=== PATIENT | female | born 1980 | race Caucasian/White ===

== ENCOUNTER 2020-02-10 11:22 | Outpatient (NON) | payer BC, SELFPAY ==
[2020-02-11 01:07] LABS: SARS-CoV-2 RNA PCR Negative
== END 2020-02-10 11:23 ==
LOC: ANHCOVIDDT 11:23
PROVIDERS: PCP Family Medicine; Visit Provider Family Medicine
DX: J02.9 Acute pharyngitis, unspecified (principal); Z20.828 Contact with and (suspected) exposure to other viral communicable diseases
CPT/HCPCS: 87635; C9803; U0003

== ENCOUNTER 2020-04-21 06:54 | Outpatient (NON) | payer BC, SELFPAY ==
[2020-04-21 18:38] LABS: SARS-CoV-2 RNA PCR Positive
== END 2020-04-21 06:55 ==
PROVIDERS: PCP Family Medicine; Visit Provider Family Medicine
DX: U07.1 COVID-19 (principal); R68.89 Other general symptoms and signs
CPT/HCPCS: C9803; U0003; U0005

== ENCOUNTER 2020-05-11 12:31 | Emergency (ER) | payer BC, SELFPAY ==
[2020-05-11] VITALS (10 sets, daily range): BP systolic 103–126; BP diastolic 59–84; PULSE 77–85; RESP 14–16; TEMP 36.3; O2SAT 97–100
--- NOTE | ~2020-05-11 | CT_ITS ---
EXAMINATION: CTA chest PE protocol DATE: 05/11/2020 14:43 INDICATION: Shortness of breath. TECHNIQUE: Computed tomography angiography (CTA) of the chest was performed with 100 mL Omnipaque-350 intravenous contrast timed to evaluate the pulmonary arteries. Coronal maximum intensity projection 3D-reconstructions were created by the technologist. Automated exposure control and iterative reconst ruction technique were employed. The dose-length product was 183.41 mGy-cm. COMPARISON: Chest single view 05/11/2020 FINDINGS: There is mild scarring at the lung apices. There is minimal atelectasis in the lower lobes. No pleural effusion. The heart size is normal. No pericardial effusion. There is no pulmonary embolu s. There is a 13 mm cyst in left kidney. The bones are unremarkable. IMPRESSION: 1. No pulmonary embolus. Reviewed, dictated and finalized at location A. NER AND TRIMMER IMPRESSION: 1. No pulmonary embolus.
--- NOTE | ~2020-05-11 | XR_ITS ---
EXAMINATION: XR chest 1V portable 05/11/2020 13:11 INDICATION: Cough PROCEDURE: AP portable chest COMPARISON: No prior studies for comparison. FINDINGS: The lungs are clear. The cardiomediastinal silhouette is within normal limits. There are no pleural effusions. There is no pneumothorax suspected. IMPRESSION: 1: NO ACUTE CARDIOPULMONARY DISEASE. Reviewed, dictated and finalized at location B. OR BUSINESS PROCESS ANALYST
--- NOTE | 2020-05-11 12:57 | ECG_ITS ---
Measurements Intervals [place] Rate: 66 P: 44 SC: 182 QRS: 53 QRSD: 82 T: 49 QT: 410 QTc: 431 Interpretive Statements SINUS RHYTHM EARLY PRECORDIAL R/S TRANSITION BASELINE ARTIFACT- I, II, AVR BORDERLINE ECG Electronically Signed On 05-11-2020 13:51:17 DOCUMENT PHOTOGRAPHER by Prasanna Ayala D.O.
--- NOTE | 2020-05-11 12:58 | ED.GENADULT ---
HPI - General Adult General Chief complaint: Shortness of Breath/Dyspnea Stated complaint: sob post covid Time Seen by Provider: 05/11/20 12:47 Source: RN notes reviewed History of Present Illness HPI narrative: Patient presents to emergency department from PCPs office for shortness of breath. Patient states he was diagnosed with COVID-19 on April 21, 2020 she states that she was released from the health department for her symptoms but continues to have shortness of breath. States shortness of breath is worse with exertion she denies any fever chills cough chest pain abdominal pain nausea vomiting or any other symptoms. Patient does have a history of tobacco use but is not smoke since she was diagnosed with COVID-19 denies any other symptoms at this time Related Data Allergies Allergy/AdvReac Type Severity Reaction Status Date / Time Penicillins Allergy Unknown achiness Verified 05/11/20 10:48 Review of Systems Review of Systems: Narrative: Gen.: Denies fevers or chills Eyes: Denies eye pain or visual change ENT: Denies congestion Respiratory: See HPI CV: Denies chest pain or palpitations GI: Denies abdominal pain nausea, emesis or diarrhea Musculoskeletal: Denies back pain or muscle pain Neuro: Denies numbness, tingling, weakness or focal weakness Skin: Denies rash Except as documented, all other systems reviewed and negative [facility] Past Medical History Medical History Abnormal CBC Ovarian cyst Spherocytosis Surgical History Surgical History Delivery by section H/O splenectomy History of salpingectomy Hx of removal of ovary Family History Family History Father Diabetes mellitus Mother Hyperlipidemia Hypertension Grandparent Pneumonia Cerebrovascular accident Heart failure Social History Social History Smoking packs per day: 0.5 Smoking cigarettes per day: 10.0 Years smoked: 18 Smoking pack-years: 9.00 Smoking status: Current every day smoker Alcohol intake: current Drinks per week: 2 Substance use: never Exam Narrative: Exam Narrative: APPEARANCE: No acute distress, nontoxic, resting in bed EYES: EOMI HEENT: Normocephalic, atraumatic, OMM RESPIRATORY: No respiratory distress Clear to auscultation bilaterally with no rhonchi wheezing or rales. CARDIOVASCULAR: Regular rate and rhythm without murmurs rubs or gallops. ABDOMINAL: Soft, nontender, nondistended, no rebound or guarding MUSCULOSKELETAl: Moves all extremities. No clubbing, cyanosis or edema. NEURO: Awake and alert. Following commands, speech normal, no focal deficits SKIN:: Warm, dry. No rashes lesions or abrasions PSYCHIATRIC: Normal affect/mood, Course Course Emergency Course: Discussed Dr. Fuentes presentation work-up agrees with plan for discharge to follow-up as an outpatient will follow liver enzymes as outpatient Discussed with patient results of workup and diagnosis. Discussed need for follow-up with primary care, proper use of medication, and reasons to return to the emergency department. Patient understands and agrees to current treatment plan Vital Signs Vital signs: Vital Signs Temperature 97.4 F L 05/11/20 12:41 Pulse Rate 79 05/11/20 12:41 Respiratory Rate 16 05/11/20 12:41 Blood Pressure 111/66 05/11/20 12:41 Pulse Oximetry 100 05/11/20 12:41 Temperature 97.4 F L 05/11/20 12:41 Pulse Rate 78 05/11/20 16:26 Respiratory Rate 14 05/11/20 16:26 Blood Pressure 126/84 05/11/20 16:26 Pulse Oximetry 97 05/11/20 16:26 Medical Decision Making MDM Narrative Medical decision making narrative: Patient has dyspnea of unclear etiology. No wheezing on clinical exam. No abnormalities noted on chest x-ray. Patient?s EKG is without high-risk changes. Oxy
[2020-05-11 13:31] LABS: Basophils Absolute Auto 0.1 K/mm3 (0.0-0.1); Basophils Percent Auto 1.1 % (0.2-1.2); Eosinophils Absolute Auto 0.2 K/mm3 (0-0.3); Eosinophils Percent Auto 1.3 % (0-4.4); Hematocrit 40.3 % (37.0-47.0); Hemoglobin 14.1 g/dL (12.0-15.0); Immature Granulocyte Absolute 0.03 K/mm3 (0.00-0.031); Immature Granulocyte Percent A 0.2 % (0-0.5); Immature Platelet Fraction Pct 3.4 % (0.9-11.2); Lymphocytes Absolute Auto 3.31 K/mm3 (0.9-3.2); Lymphocytes Percent Auto 27.4 % (18.3-44.2); Mean Corpuscular Volume 88.6 fl (80-100); Mean Platelet Volume 9.5 fl (7.4-10.4); Neutrophils Absolute Auto 7.5 K/mm3 (1.3-6.7); Platelet Count Result 547 k/mm3 (150-375); Red Blood Count 4.55 M/mm3 (4.2-5.4); Red Cell Distribution Width 12.2 % (11.5-14.5); White Blood Count 12.1 K/mm3 (4.5-10.0)
[2020-05-11 13:40] LABS: INR 0.9; Prothrombin Time 12.9 Seconds (11.1-14.7)
[2020-05-11 13:41] LABS: Partial Thromboplastin Time 28.5 SECONDS (22.3-36.8)
[2020-05-11 13:43] LABS: Alanine Aminotransferase 105 U/L (4-35); Albumin Level 3.9 g/dL (3.5-5.1); Alkaline Phosphatase 55 U/L (38-126); Anion Gap 4 mmol/L (8-16); Aspartate Amino Transferase 97 U/L (14-36); Bilirubin,Total 1.3 mg/dL (0.2-1.3); Blood Urea Nitrogen 8 mg/dL (7-17); Calcium 8.7 mg/dL (8.4-10.2); Carbon Dioxide 25 mmol/L (22-30); Chloride 107 mmol/L (98-107); Estimated CRCL calculation 85 ml/min; Estimated Glomerular Filt Rate > 60; Glucose 96 mg/dL (65-105); Potassium 4.2 mmol/L (3.4-5.0); Sodium 136 mmol/L (137-145)
[2020-05-11 13:44] LABS: D Dimer 0.35 ug/mL (<0.48)
[2020-05-11 13:51] LABS: Burr Cells 1+ (NORMAL); Platelet Estimate Adequate (Adequate)
[2020-05-11] MEDS: SODIUM CHLORIDE 0.9% IV 1,000 ML 999 ML IV CONT (14:50)
== END 2020-05-11 16:41 | disposition home or self-care (01) ==
PROVIDERS: Emergency Provider Emergency Medicine; PCP Family Medicine
DX: R06.00 Dyspnea, unspecified (principal); Z86.16 Personal history of COVID-19; F17.210 Nicotine dependence, cigarettes, uncomplicated; Z90.81 Acquired absence of spleen; R94.31 Abnormal electrocardiogram [ECG] [EKG]
CPT/HCPCS: 36415; 71045; 71275; 80053; 81025; 85025; 85055; 85380; 85610; 85730; 93005; 96360; 96361; 99284; J7030; Q9967

== ENCOUNTER 2020-06-10 13:34 | Outpatient (CLI) | payer BC, SELFPAY ==
--- NOTE | 2020-06-10 18:03 | P.PCNPFT_ITS ---
PFT Interpretation This is a pulmonary function test with pre and post-bronchodilator spirometry, plethysmography and diffusing capacity. The test was performed and results interpreted in accordance with the 2019 and 2005 ATS/ERS Task Force guidelines respectively using the Global Lung Function Initiative-2012 reference equations. Patient demonstrated good effort and c ooperation. Reproducibility criteria were met. The quality of the pre bronchodilator spirometry maneuver was Grade A and post bronchodilator spirometry maneuver was Grade A. Findings: Spirometry: the contour the inspiratory and expiratory flow tracing are normal. The pre bronchodilator FVC is 3.29 L, 96% predicted. The pre bronchodilator FEV1 is 2.62 L, 93% predicted. The FEV1: FVC ratio was 80%. The post bronchodilator FVC is 3.26 L, representing a 1% decrease. The post bronchodilator FEV1 is 2.77, representing a 6% increase. Plethysmography: The total lung capacity is 4.25 L, 90% predicted. The functional residual capacity is 1.77 L, 68% predicted. The residual volume is 0.96 L, 66% predicted. Diffusing capacity: The absolute diffusion capacity is 19.4, 84% predicted. T he diffusing capacity corrected for alveolar volume is 4.94, 102% predicted. Impression: The spirometry is normal without evidence of an obstructive abnormality. There is no significant improvement after inhaling a single dose of albuterol. The lung volumes are normal. The diffusing capacity is normal. There are no prior studies for comparison
== END 2020-06-10 13:35 | disposition home or self-care (01) ==
PROVIDERS: PCP Family Medicine; Visit Provider Internal Medicine Critical Care Medicine
DX: R06.00 Dyspnea, unspecified (principal)
CPT/HCPCS: 94060; 94726; 94729

== ENCOUNTER 2020-12-17 08:37 | Outpatient (CLI) | payer BC, SELFPAY ==
[2020-12-17 19:46] LABS: Basophils Absolute Auto 0.1 K/mm3 (0.0-0.1); Basophils Percent Auto 1.1 % (0.2-1.2); Eosinophils Absolute Auto 0.2 K/mm3 (0-0.3); Eosinophils Percent Auto 1.3 % (0-4.4); Hematocrit 47.1 % (37.0-47.0); Immature Granulocyte Absolute 0.03 K/mm3 (0.00-0.031); Immature Granulocyte Percent A 0.3 % (0-0.5); Lymphocytes Percent Auto 31.4 % (18.3-44.2); Mean Corpuscular HGB Conc 31.8 g/dl (32-36); Mean Corpuscular Hemoglobin 31.4 pg (26-34); Mean Corpuscular Volume 98.5 fl (80-100); Mean Platelet Volume 9.8 fl (7.4-10.4); Monocytes Percent Auto 8.7 % (2.6-8.5); Neutrophils Absolute Auto 6.5 K/mm3 (1.3-6.7); Neutrophils Percent Auto 57.2 % (45.5-73.1); Platelet Count Result 633 k/mm3 (150-375); Red Blood Count 4.78 M/mm3 (4.2-5.4); Red Cell Distribution Width 13.8 % (11.5-14.5); White Blood Count 11.5 K/mm3 (4.5-10.0)
[2020-12-17 19:59] LABS: Add Urine Microscopic? YES; Appearance Urine Cloudy (Clear); Bacteria Urine Trace /hpf; Bilirubin Urine Negative (Negative); Blood Urine Negative (Negative); Color Urine Yellow (Yellow); Glucose Urine UA Negative (Negative); Ketones Urine Negative (Negative); Leukocyte Esterase Ur Negative LEU/UL (NEGATIVE); Mucus Urine Moderate /lpf; Nitrate Urine Positive (Negative); Protein Urine 1+ mg/dL (Negative); Specific Grav Ur 1.025 (1.001-1.035); Squamous Epithelial Cell Urine Many /hpf (Few)
[2020-12-17 20:10] LABS: Alanine Aminotransferase 19 U/L (4-35); Albumin Level 4.4 g/dL (3.5-5.1); Alkaline Phosphatase 42 U/L (38-126); Anion Gap 10 mmol/L (8-16); Aspartate Amino Transferase 33 U/L (14-36); Blood Urea Nitrogen 12 mg/dL (7-17); Calcium 9.6 mg/dL (8.4-10.2); Carbon Dioxide 24 mmol/L (22-30); Chloride 103 mmol/L (98-107); Cholesterol 233 mg/dL (0-200); Estimated Glomerular Filt Rate > 60; Glucose 93 mg/dL (65-110); HDL Direct 56 mg/dL; Potassium 4.5 mmol/L (3.4-5.0); Sodium 137 mmol/L (137-145); Triglycerides 104 mg/dL (<150)
[2020-12-17 20:14] LABS: Hemoglobin A1C 4.7 % (<5.7)
[2020-12-17 20:21] LABS: LDL Cholesterol Direct 119 mg/dL
== END 2020-12-17 08:38 | disposition home or self-care (01) ==
PROVIDERS: PCP Family Medicine; Visit Provider Family Medicine
DX: N30.90 Cystitis, unspecified without hematuria (principal); E07.9 Disorder of thyroid, unspecified; E78.5 Hyperlipidemia, unspecified; R73.9 Hyperglycemia, unspecified; Z00.00 Encounter for general adult medical examination without abnormal findings
CPT/HCPCS: 36415; 80053; 80061; 81001; 83036; 84443; 85025

== ENCOUNTER 2021-02-17 15:33 | Outpatient (CLI) | payer BC, SELFPAY ==
[2021-02-17 19:18] LABS: Add Urine Microscopic? YES; Appearance Urine Cloudy (Clear); Bilirubin Urine Negative (Negative); Blood Urine Negative (Negative); Color Urine Yellow (Yellow); Glucose Urine UA Negative (Negative); Ketones Urine Negative (Negative); Leukocyte Esterase Ur 1+ LEU/UL (NEGATIVE); Mucus Urine Few /lpf; Nitrate Urine Positive (Negative); Protein Urine Negative (Negative); Specific Grav Ur 1.014 (1.001-1.035); Squamous Epithelial Cell Urine Few /hpf (Few)
== END 2021-02-17 15:34 | disposition home or self-care (01) ==
LOC: ANHBWCLAB 15:34
PROVIDERS: PCP Family Medicine; Visit Provider Family Medicine
DX: N30.90 Cystitis, unspecified without hematuria (principal)
CPT/HCPCS: 81001; 87077; 87086; 87186

== ENCOUNTER 2021-06-16 08:40 | Outpatient (CLI) | payer BC, SELFPAY ==
[2021-06-16 18:53] LABS: Basophils Absolute Auto 0.1 K/mm3 (0.0-0.1); Eosinophils Absolute Auto 0.1 K/mm3 (0-0.3); Hematocrit 46.3 % (37.0-47.0); Hemoglobin 15.1 g/dL (12.0-15.0); Immature Granulocyte Absolute 0.03 K/mm3 (0.00-0.031); Immature Granulocyte Percent A 0.2 % (0-0.5); Lymphocytes Absolute Auto 3.09 K/mm3 (0.9-3.2); Lymphocytes Percent Auto 24.4 % (18.3-44.2); Mean Corpuscular HGB Conc 32.6 g/dl (32-36); Mean Corpuscular Hemoglobin 31.6 pg (26-34); Mean Corpuscular Volume 96.9 fl (80-100); Mean Platelet Volume 10.1 fl (7.4-10.4); Monocytes Absolute Auto 1.1 K/mm3 (0.1-0.6); Monocytes Percent Auto 8.6 % (2.6-8.5); Neutrophils Absolute Auto 8.2 K/mm3 (1.3-6.7); Neutrophils Percent Auto 64.8 % (45.5-73.1); Platelet Count Result 510 k/mm3 (150-375); Red Blood Count 4.78 M/mm3 (4.2-5.4); Red Cell Distribution Width 13.2 % (11.5-14.5); White Blood Count 12.6 K/mm3 (4.5-10.0)
[2021-06-16 20:16] LABS: Alanine Aminotransferase 18 U/L (4-35); Albumin Level 4.2 g/dL (3.5-5.1); Alkaline Phosphatase 47 U/L (38-126); Anion Gap 10 mmol/L (8-16); Aspartate Amino Transferase 36 U/L (14-36); Blood Urea Nitrogen 14 mg/dL (7-17); Calcium 9.2 mg/dL (8.4-10.2); Carbon Dioxide 17 mmol/L (22-30); Chloride 108 mmol/L (98-107); Creatine Kinase 47 U/L (30-135); Estimated Glomerular Filt Rate > 60; Glucose 103 mg/dL (65-110); Magnesium 2.3 mg/dL (1.6-2.3); Potassium 4.4 mmol/L (3.4-5.0); Sodium 135 mmol/L (137-145)
== END 2021-06-16 08:41 | disposition home or self-care (01) ==
PROVIDERS: PCP Family Medicine; Visit Provider Family Medicine
DX: D75.839 Thrombocytosis, unspecified (principal); G25.81 Restless legs syndrome; E07.9 Disorder of thyroid, unspecified; R25.2 Cramp and spasm; R20.0 Anesthesia of skin; D58.0 Hereditary spherocytosis; Z90.81 Acquired absence of spleen; R79.89 Other specified abnormal findings of blood chemistry
CPT/HCPCS: 36415; 80053; 82306; 82550; 82607; 82728; 83735; 84443; 85025

== ENCOUNTER 2021-07-26 15:25 | Outpatient (CLI) | payer BC, SELFPAY ==
[2021-07-26 15:42] LABS: Basophils Absolute Auto 0.1 K/mm3 (0.0-0.1); Eosinophils Absolute Auto 0.1 K/mm3 (0-0.3); Hemoglobin 14.4 g/dL (12.0-15.0); Immature Granulocyte Absolute 0.04 K/mm3 (0.00-0.031); Immature Granulocyte Percent A 0.3 % (0-0.5); Lymphocytes Absolute Auto 4.49 K/mm3 (0.9-3.2); Lymphocytes Percent Auto 32.6 % (18.3-44.2); Mean Corpuscular HGB Conc 33.5 g/dl (32-36); Mean Corpuscular Hemoglobin 31.2 pg (26-34); Mean Corpuscular Volume 93.3 fl (80-100); Mean Platelet Volume 9.5 fl (7.4-10.4); Monocytes Absolute Auto 1.3 K/mm3 (0.1-0.6); Monocytes Percent Auto 9.1 % (2.6-8.5); Neutrophils Absolute Auto 7.7 K/mm3 (1.3-6.7); Platelet Count Result 307 k/mm3 (150-375); Red Blood Count 4.61 M/mm3 (4.2-5.4); Red Cell Distribution Width 12.1 % (11.5-14.5); White Blood Count 13.8 K/mm3 (4.5-10.0)
[2021-07-26 15:48] LABS: Atypical Lymphocytes Present; Platelet Estimate Adequate (Adequate)
[2021-07-26 16:44] LABS: Anion Gap 6 mmol/L (8-16); Blood Urea Nitrogen 12 mg/dL (7-17); CRP < 0.5 mg/dL (<1.0); Calcium 9.3 mg/dL (8.4-10.2); Carbon Dioxide 26 mmol/L (22-30); Chloride 103 mmol/L (98-107); Estimated Glomerular Filt Rate > 60; Glucose 104 mg/dL (65-110); Potassium 3.8 mmol/L (3.4-5.0); Sodium 135 mmol/L (137-145)
[2021-07-26 17:07] LABS: Erythrocyte Sedimentation Rate 15 mm/hr (0-20)
== END 2021-07-26 15:26 | disposition home or self-care (01) ==
LOC: ANHLAB 15:27
PROVIDERS: PCP Family Medicine; Visit Provider Internal Medicine Hematology & Oncology
DX: D75.838 Other thrombocytosis (principal)
CPT/HCPCS: 36415; 80048; 85025; 85652; 86140

== ENCOUNTER 2021-08-10 13:35 | Outpatient (CLI) | payer BC, SELFPAY ==
[2021-08-10 19:53] LABS: Appearance Urine Slightly Cloudy (Clear); Bilirubin Urine Negative (Negative); Blood Urine Negative (Negative); Color Urine Yellow (Yellow); Glucose Urine UA Negative (Negative); Ketones Urine Negative (Negative); Leukocyte Esterase Ur 1+ LEU/UL (NEGATIVE); Nitrate Urine Negative (Negative); Protein Urine Negative (Negative); Specific Grav Ur 1.025 (1.001-1.035)
[2021-08-10 19:58] LABS: Bacteria Urine 4+ /hpf; Mucus Urine Few /lpf; Squamous Epithelial Cell Urine Few /hpf (Few)
[2021-08-10 20:00] LABS: Add Urine Microscopic? YES
== END 2021-08-10 13:36 | disposition home or self-care (01) ==
PROVIDERS: PCP Family Medicine; Visit Provider Family Medicine
DX: N30.90 Cystitis, unspecified without hematuria (principal)
CPT/HCPCS: 81001; 87077; 87086; 87186

== ENCOUNTER 2021-12-28 08:47 | Outpatient (CLI) | payer BC, SELFPAY ==
[2021-12-28 20:18] LABS: Basophils Absolute Auto 0.1 K/mm3 (0.0-0.1); Basophils Percent Auto 1.3 % (0.2-1.2); Eosinophils Absolute Auto 0.1 K/mm3 (0-0.3); Eosinophils Percent Auto 1.1 % (0-4.4); Hematocrit 46.4 % (37.0-47.0); Hemoglobin 14.8 g/dL (12.0-15.0); Immature Granulocyte Absolute 0.03 K/mm3 (0.00-0.031); Immature Granulocyte Percent A 0.3 % (0-0.5); Lymphocytes Absolute Auto 3.02 K/mm3 (0.9-3.2); Lymphocytes Percent Auto 27.6 % (18.3-44.2); Mean Corpuscular HGB Conc 31.9 g/dl (32-36); Mean Corpuscular Hemoglobin 31.3 pg (26-34); Mean Corpuscular Volume 98.1 fl (80-100); Mean Platelet Volume 9.7 fl (7.4-10.4); Monocytes Absolute Auto 0.9 K/mm3 (0.1-0.6); Monocytes Percent Auto 8.5 % (2.6-8.5); Neutrophils Absolute Auto 6.7 K/mm3 (1.3-6.7); Neutrophils Percent Auto 61.2 % (45.5-73.1); Platelet Count Result 593 k/mm3 (150-375); Red Blood Count 4.73 M/mm3 (4.2-5.4); Red Cell Distribution Width 13.5 % (11.5-14.5); White Blood Count 10.9 K/mm3 (4.5-10.0)
[2021-12-28 20:22] LABS: Free T4 Free Thyroxine 1.01 ng/mL (0.78-2.19)
[2022-01-01 08:24] LABS: Triiodothyronine T3 Free 3.5 pg/mL (2.3-4.2)
== END 2021-12-28 08:48 | disposition home or self-care (01) ==
LOC: ANHBWCLAB 08:48
PROVIDERS: PCP Family Medicine; Visit Provider Family Medicine
DX: E07.9 Disorder of thyroid, unspecified (principal); R20.0 Anesthesia of skin; R25.2 Cramp and spasm
CPT/HCPCS: 36415; 84439; 84443; 84481; 85025

== ENCOUNTER 2022-01-25 08:30 | Outpatient (CLI) | payer BC, SELFPAY ==
--- NOTE | ~2022-01-25 | XR_ITS ---
EXAMINATION: XR hand BI arthritis min 3V DATE: 01/25/2022 08:45 INDICATION: Chronic bilateral hand pain and numbness. TECHNIQUE: 4 views of right hand and 4 views of left hand on a total of 7 radiographs were obtained. COMPARISON: None. FINDINGS: RIGHT HAND: Bone alignment is normal. No fracture. There is mild osteoarthritis of first carpometacar pal joint. LEFT HAND: Bone alignment is normal. No fracture. Joint spaces are normal. IMPRESSION: 1. 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 Reviewed, dictated and finalized at location A.
[2022-01-25 20:00] LABS: CRP < 0.5 mg/dL (<1.0)
[2022-01-25 20:36] LABS: Erythrocyte Sedimentation Rate 12 mm/hr (0-20)
[2022-01-31 09:41] LABS: ANA Cascade Screen Negative (Negative)
== END 2022-01-25 08:31 | disposition home or self-care (01) ==
PROVIDERS: PCP Family Medicine; Visit Provider Family Medicine
DX: M79.89 Other specified soft tissue disorders (principal); R25.2 Cramp and spasm; M19.041 Primary osteoarthritis, right hand
CPT/HCPCS: 36415; 73130; 85652; 86038; 86140

== ENCOUNTER 2022-06-09 07:27 | Outpatient (CLI) | payer BC, SELFPAY ==
[2022-06-09 21:14] LABS: Appearance Urine Cloudy (Clear); Bilirubin Urine Negative (Negative); Blood Urine Negative (Negative); Color Urine Yellow (Yellow); Glucose Urine UA Negative (Negative); Ketones Urine Negative (Negative); Leukocyte Esterase Ur Trace LEU/UL (NEGATIVE); Nitrate Urine Positive (Negative); Protein Urine Negative (Negative); Specific Grav Ur 1.025 (1.001-1.035); Urobilinogen Urine 0.2 mg/dL (<2.0)
[2022-06-09 21:54] LABS: Add Urine Microscopic? YES
[2022-06-09 21:55] LABS: RBC Urine 0-2 /hpf (0-2); Squamous Epithelial Cell Urine Few /hpf (Few)
[2022-06-09 21:56] LABS: Bacteria Urine 4+ /hpf
== END 2022-06-09 07:28 | disposition home or self-care (01) ==
LOC: ANHBWCLAB 07:29
PROVIDERS: PCP Family Medicine; Visit Provider Family Medicine
DX: N30.90 Cystitis, unspecified without hematuria (principal)
CPT/HCPCS: 81001; 87077; 87086; 87186

== ENCOUNTER 2022-12-07 07:30 | Outpatient (CLI) | payer BC, SELFPAY ==
[2022-12-07 18:14] LABS: Hemoglobin 14.3 g/dL (12.0-15.0); Mean Corpuscular HGB Conc 31.1 g/dl (32-36); Mean Corpuscular Hemoglobin 30.8 pg (26-34); Mean Corpuscular Volume 99.1 fl (80-100); Mean Platelet Volume 9.8 fl (7.4-10.4); Platelet Count Result 563 k/mm3 (150-375); Red Blood Count 4.64 M/mm3 (4.2-5.4); Red Cell Distribution Width 13.8 % (11.5-14.5); White Blood Count 11.2 K/mm3 (4.5-10.0)
[2022-12-07 19:03] LABS: Alanine Aminotransferase 26 U/L (6-35); Alkaline Phosphatase 49 U/L (38-126); Anion Gap 4 mmol/L (8-16); Aspartate Amino Transferase 76 U/L (14-36); Bilirubin,Total 0.8 mg/dL (0.2-1.3); Blood Urea Nitrogen 12 mg/dL (7-17); Calcium 8.7 mg/dL (8.4-10.2); Carbon Dioxide 26 mmol/L (22-30); Chloride 107 mmol/L (98-107); Cholesterol 227 mg/dL (0-200); Estimated Glomerular Filt Rate > 60; Glucose 92 mg/dL (65-110); HDL Direct 47 mg/dL; Potassium 4.3 mmol/L (3.4-5.0); Sodium 137 mmol/L (137-145); Triglycerides 90 mg/dL (<150)
[2022-12-07 19:14] LABS: LDL Cholesterol Direct 127 mg/dL
[2022-12-07 20:30] LABS: Vitamin D 25 Hydroxy 48.4 ng/mL
== END 2022-12-07 07:31 | disposition home or self-care (01) ==
LOC: ANHBWCLAB 07:31
PROVIDERS: PCP Family Medicine; Visit Provider Family Medicine
DX: Z00.00 Encounter for general adult medical examination without abnormal findings (principal); G25.81 Restless legs syndrome; R20.0 Anesthesia of skin; R79.89 Other specified abnormal findings of blood chemistry; N93.8 Other specified abnormal uterine and vaginal bleeding; K21.9 Gastro-esophageal reflux disease without esophagitis; D58.0 Hereditary spherocytosis; D75.839 Thrombocytosis, unspecified; R51.9 Headache, unspecified; H92.09 Otalgia, unspecified ear; G89.29 Other chronic pain; M79.89 Other specified soft tissue disorders; E34.9 Endocrine disorder, unspecified; E78.5 Hyperlipidemia, unspecified; E07.9 Disorder of thyroid, unspecified; I95.9 Hypotension, unspecified; Z90.81 Acquired absence of spleen; Z90.79 Acquired absence of other genital organ(s)
CPT/HCPCS: 36415; 80053; 80061; 82306; 84443; 85027

== ENCOUNTER 2023-04-06 07:21 | Outpatient (CLI) | payer BC, SELFPAY ==
[2023-04-06 18:54] LABS: Appearance Urine Cloudy (Clear); Bacteria Urine 4+ /hpf; Bilirubin Urine Negative (Negative); Blood Urine Negative (Negative); Color Urine Yellow (Yellow); Glucose Urine UA Negative (Negative); Ketones Urine Negative (Negative); Leukocyte Esterase Ur Trace LEU/UL (Negative); Nitrate Urine Negative (Negative); Non Pathogenic Casts 0-2; Protein Urine Negative (Negative); RBC Urine 0-2 /hpf (0-2); Squamous Epithelial Cell Urine Few /hpf (Few); pH Urine 5.5 (5.0-9.0)
[2023-04-06 19:00] LABS: Add Urine Microscopic? YES
== END 2023-04-06 07:22 | disposition home or self-care (01) ==
PROVIDERS: PCP Nurse Practitioner Adult Health; Visit Provider Family Medicine
DX: R39.9 Unspecified symptoms and signs involving the genitourinary system (principal)
CPT/HCPCS: 81001; 87077; 87086; 87186

== ENCOUNTER 2023-06-12 07:39 | Outpatient (CLI) | payer BC, SELFPAY ==
[2023-06-12 18:45] LABS: Hematocrit 48.7 % (37.0-47.0); Hemoglobin 15.5 g/dL (12.0-15.0); Mean Corpuscular HGB Conc 31.8 g/dl (32-36); Mean Corpuscular Hemoglobin 30.6 pg (26-34); Mean Corpuscular Volume 96.1 fl (80-100); Mean Platelet Volume 10.4 fl (7.4-10.4); Platelet Count Result 551 k/mm3 (150-375); Red Blood Count 5.07 M/mm3 (4.2-5.4); White Blood Count 12.6 K/mm3 (4.5-10.0)
[2023-06-12 18:49] LABS: Alanine Aminotransferase 58 U/L (6-35); Alkaline Phosphatase 52 U/L (38-126); Anion Gap 7 mmol/L (8-16); Aspartate Amino Transferase 115 U/L (14-36); Blood Urea Nitrogen 12 mg/dL (7-17); Carbon Dioxide 21 mmol/L (22-30); Chloride 109 mmol/L (98-107); Estimated Glomerular Filt Rate > 60; Glucose 92 mg/dL (65-110); Sodium 137 mmol/L (137-145)
[2023-06-12 19:24] LABS: Vitamin D 25 Hydroxy 43.8 ng/mL
== END 2023-06-12 07:40 | disposition home or self-care (01) ==
LOC: ANHBWCLAB 07:40
PROVIDERS: PCP Nurse Practitioner Adult Health; Visit Provider Family Medicine
DX: Z00.00 Encounter for general adult medical examination without abnormal findings (principal); R79.89 Other specified abnormal findings of blood chemistry; D58.0 Hereditary spherocytosis; E07.9 Disorder of thyroid, unspecified; Z90.79 Acquired absence of other genital organ(s); Z90.81 Acquired absence of spleen
CPT/HCPCS: 36415; 80053; 82306; 84443; 85027

== ENCOUNTER 2023-07-15 07:28 | Outpatient (CLI) | payer BC, SELFPAY ==
[2023-07-15 08:51] LABS: Hepatitis B Surface Antigen Negative (Negative)
[2023-07-15 08:57] LABS: HAV RESULT Negative (Negative); Hepatitis B Core IgM Result Negative (Negative)
[2023-07-15 09:08] LABS: Hepatitis C Virus Antibody Negative (Negative)
== END 2023-07-15 07:29 | disposition home or self-care (01) ==
LOC: ANHLAB 07:29
PROVIDERS: PCP Nurse Practitioner Adult Health; Visit Provider Family Medicine
DX: R74.01 Elevation of levels of liver transaminase levels (principal)
CPT/HCPCS: 36415; 80074

== ENCOUNTER 2023-07-31 15:56 | Outpatient (CLI) | payer BC, SELFPAY ==
[2023-07-31 19:13] LABS: Appearance Urine Cloudy (Clear); Bacteria Urine 1+ /hpf; Bilirubin Urine Negative (Negative); Blood Urine Negative (Negative); Color Urine Yellow (Yellow); Glucose Urine UA Negative (Negative); Ketones Urine Negative (Negative); Leukocyte Esterase Ur 1+ LEU/UL (Negative); Nitrate Urine Negative (Negative); Non Pathogenic Casts 0-2; Protein Urine Negative (Negative); RBC Urine 0-2 /hpf (0-2); Squamous Epithelial Cell Urine Few /hpf (Few); WBC Urine 51-100 /hpf (0-3); pH Urine 7.5 (5.0-9.0)
[2023-07-31 19:46] LABS: Add Urine Microscopic? YES
== END 2023-07-31 15:57 | disposition home or self-care (01) ==
LOC: ANHBWCLAB 15:58
PROVIDERS: PCP Family Medicine; Visit Provider Family Medicine
DX: R74.01 Elevation of levels of liver transaminase levels (principal); N30.90 Cystitis, unspecified without hematuria
CPT/HCPCS: 81001; 87077; 87086; 87088

== ENCOUNTER 2023-08-26 07:33 | Outpatient (CLI) | payer BC, SELFPAY ==
--- NOTE | ~2023-08-26 | US_ITS ---
EXAMINATION: US abdomen limited DATE: 08/26/2023 08:06 INDICATION: Elevation of levels of liver transaminases. TECHNIQUE: Multiple grayscale and Doppler ultrasound images of the abdomen were obtained. COMPARISON: Chest CT 05/11/2020 FINDINGS: The visualized portions of the head, body, and tail of the pancreas are normal. There is a 1.1 cm hyperechoic mass in the liver. There is normal flow in main portal vein. The gallbladder is no rmal in size. No gallstones or gallbladder wall thickening. There is no sonographic Lopse's sign. Th e common duct is normal and measures 3 mm. IMPRESSION: 1. 1.1 cm hyperechoic liver mass, likely hemangioma in the absence of known malignancy or chronic jarrett er disease. Reviewed, dictated and finalized at location A. IMPRESSION: 1. 1.1 cm hyperechoic liver mass, likely hemangioma in the absence of known mal ignancy or chronic liver disease.
== END 2023-08-26 07:34 | disposition home or self-care (01) ==
LOC: ANHIMG 07:36
PROVIDERS: PCP Family Medicine; Visit Provider Family Medicine
DX: R74.01 Elevation of levels of liver transaminase levels (principal); R16.0 Hepatomegaly, not elsewhere classified
CPT/HCPCS: 76705

== ENCOUNTER 2023-12-14 11:18 | Outpatient (CLI) | payer BC, SELFPAY ==
[2023-12-14 19:46] LABS: Add Urine Microscopic? YES; Appearance Urine Turbid (Clear); Bacteria Urine 4+ /hpf; Bilirubin Urine 1+ (Negative); Blood Urine Negative (Negative); Budding Yeast Urine Present /hpf; Color Urine Dark Yellow (Yellow); Glucose Urine UA Negative (Negative); Ketones Urine Trace mg/dL (Negative); Leukocyte Esterase Ur 2+ LEU/UL (Negative); Need Manual Microscopic Reviewed; Nitrate Urine Positive (Negative); Protein Urine 1+ mg/dL (Negative); Specific Grav Ur 1.025 (1.001-1.035); Squamous Epithelial Cell Urine Many /hpf (Few); WBC Urine 21-50 /hpf (0-3)
== END 2023-12-14 11:19 | disposition home or self-care (01) ==
LOC: ANHBWCLAB 11:19
PROVIDERS: PCP Nurse Practitioner Adult Health; Visit Provider Nurse Practitioner Adult Health
DX: R39.9 Unspecified symptoms and signs involving the genitourinary system (principal)
CPT/HCPCS: 81001; 87077; 87086; 87088; 87186

== ENCOUNTER 2024-01-01 08:03 | Outpatient (CLI) | payer BC, SELFPAY ==
[2024-01-01 18:53] LABS: Hemoglobin 15.3 g/dL (12.0-15.0); Mean Corpuscular HGB Conc 31.9 g/dl (32-36); Mean Corpuscular Hemoglobin 31.5 pg (26-34); Mean Platelet Volume 10.5 fl (7.4-10.4); Platelet Count Result 511 k/mm3 (150-375); Red Blood Count 4.85 M/mm3 (4.2-5.4); Red Cell Distribution Width 13.7 % (11.5-14.5); White Blood Count 9.1 K/mm3 (4.5-10.0)
[2024-01-01 19:19] LABS: Alanine Aminotransferase 21 U/L (6-35); Albumin Level 4.1 g/dL (3.5-5.1); Alkaline Phosphatase 43 U/L (38-126); Anion Gap 7 mmol/L (4-12); Aspartate Amino Transferase 30 U/L (14-36); Bilirubin,Total 0.9 mg/dL (0.2-1.3); Blood Urea Nitrogen 13 mg/dL (7-17); Calcium 9.3 mg/dL (8.4-10.2); Carbon Dioxide 24 mmol/L (22-30); Chloride 104 mmol/L (98-107); Cholesterol 229 mg/dL (0-200); Estimated Glomerular Filt Rate > 60; Glucose 94 mg/dL (65-110); HDL Direct 54 mg/dL; Potassium 4.7 mmol/L (3.4-5.0); Sodium 135 mmol/L (137-145); Triglycerides 139 mg/dL (<150)
[2024-01-01 19:20] LABS: Iron 117 ug/dL (37-170)
[2024-01-01 19:29] LABS: Percent Iron Saturation 43 % (20-50)
[2024-01-01 19:30] LABS: LDL Cholesterol Direct 132 mg/dL
[2024-01-01 19:35] LABS: Vitamin D 25 Hydroxy 46.9 ng/mL
[2024-01-01 20:25] LABS: Folic Acid 5.2 ng/mL (2.76->20)
== END 2024-01-01 08:04 | disposition home or self-care (01) ==
PROVIDERS: PCP Nurse Practitioner Adult Health; Visit Provider Nurse Practitioner Adult Health
DX: R79.89 Other specified abnormal findings of blood chemistry (principal)
CPT/HCPCS: 36415; 80053; 80061; 82306; 82607; 82728; 82746; 83540; 83550; 85027

== ENCOUNTER 2024-07-10 08:35 | Outpatient (CLI) | payer BC, SELFPAY ==
--- OUTSIDE RECORDS SUMMARY | 2024-07-10 09:03 | XMS_ITS | Clinical Summary ---
Author Organization [facility] Address [address] [place] [address] Care Team Providers Care Workcell Operator Name Role Phone Kimberly Rivera MD Unavailable [phone] Duke Sargent MD Primary Care Provider [phone] Allergies Active Allergy Reactions Criticality Noted Date Comments Penicillin Itching Reaction: Itching, Medications naproxen (NAPROSYN) 500 mg tablet Take 1 tablet (500 mg total) by mouth 2 (two) times a day as needed for pain (pain) 30 tablet 1 0 Active Additional Information Patient not taking.Reported on 04/29/2024 liothyronine (CYTOMEL) 5 mcg tablet Take 1 tablet (5 mcg total) by mouth daily 1 Active ergocalciferol (VITAMIN D) 50,000 unit capsule Take 1 capsule (50,000 Units total) by mouth every 30 (thirty) days Active cholecalciferol (VITAMIN D-3) 5,000 unit capsule Take 1 capsule (5,000 Units total) by mouth daily Active FLUoxetine (PROzac) 40 mg capsule 5 Active Active Problems Problem Noted Date Diagnosed Date Abnormal mammogram 04/29/2024 Overview (04/29/2024): Encouraged to schedule appointment to have follow-up diagnostic breast imaging done. Assessment & Plan (04/29/2024 4:38 PM MACHINE TENDER): Encouraged to schedule appointment to have follow-up diagnostic breast imaging done. Since she will be due for screening of the right breast in May, I have changed the order to a bilateral diagnostic mammogram w/ the left breast ultrasound. Endometrioma 01/26/2019 Overview (01/26/2019): S/p salpingo-oophorectomy, benign findings Endometriosis of vagina 01/26/2019 Pelvic mass 07/20/2018 Overview (07/21/2018): Added automatically from request for surgery [id number] Spherocytosis 03/09/2015 Overview (07/08/2016): Spherocytosis Encounters Date Type Department Care Team Description 06/04/2024 11:23 AM MACHINE TENDER - 06/04/2024 11:59 PM MACHINE TENDER Hospital Encounter [address] [address] Abnormal mammogram Discharge Disposition: Discharge to home or self care 06/04/2024 11:23 AM MACHINE TENDER - 06/04/2024 11:59 PM MACHINE TENDER Hospital Encounter [address] [address] Abnormal mammogram Discharge Disposition: Discharge to home or self care 06/04/2024 Results Follow-Up [address] [place] [address] Luh Smith NP Abnormal mammogram (Primary Dx) 04/29/2024 3:30 PM MACHINE TENDER [facility] [address] [place] [address] Luh Smith NP Well woman exam (Primary Dx); Abnormal mammogram from Last 3 Months Surgical History Surgery Date Site/Laterality Comments OTHER SURGICAL HISTORY 04/03/2001 - 04/02/2002 , Preeclampsia: OTHER SURGICAL HISTORY Spherocytosis: Splenectomy SECTION 10/01/2001 - 10/31/2001 CYST REMOVAL 07/21/2018 Endometrial Cyst- laproscopic. 1 tube and 1 ovary from left side. SPLENECTOMY, TOTAL 04/03/1986 - 04/02/1987 Medical History Medical History Date Comments Hx Other Medical , Pree clampsia; Comments: Preeclampsia.; Outcome: 37W0D week 7lb(s) 9 oz Male Hx Other Medical Spherocytosis; Comments: RED 03/09/2015 - History of kidney problems Anemia Hx of infertility Female fertility problems Smoking former smoker qu it 04/2020 Family History Medical History Relation Name Comments Diabetes Father Diabetes mellit us; Hyperlipidemia Mother Hypertension Mother Hypertension; Breast cancer Neg Hx Ovarian cancer Neg Hx Thyroid cancer Neg Hx Relation Name Status Comments Father Mother Social History Tobacco Use Types Packs/Day Years Used Date Smoking Tobacco: Former Cigarettes Smokeless Tobacco: Never Tobacco Cessation:Counseling Given: Not Answered Comments:Smoking History Packs/day: 0.5 Packs Alcohol Use Standard Drinks/Week Comments Yes 0 (1 standard drink = 0.6 oz pur e alcohol) AUDIT-C Answer Date Recorded Q1: How often do you have a drink containing alc ohol? Monthly or less 01/13/2022 Q2: How many drinks containi ng alcohol do you have on a typical day when you are drinking? 1 or 2 01/13/2022 Q3: How often do you have si x or more drinks on one occasion? Never 01/13/2022 PHQ-2 Answer Date Recorded PHQ-2 Total Score (If total score is 3 or more points, staff should administer the PHQ-9) 0 04/27/2023 Comments No Sex and Gender Information Value Date Recorded Sex Assigned at Not on file Legal Sex Female 8:22 AM MACHINE TENDER Gender Identity Not on file Sexual Orientation Not on file Obstetrics History Para Term AB IAB SAB Ectopic Multiple Livin g Live Births 1 1 1 1 1 Date Outcome GA Total Labor Labor/2nd/3rd Weight Sex Type Anes PTL Jaye A1 A5 Name Clin Term Living Last Filed Vital Signs Vital Sign Reading Time Taken Comments Blood Pressure 110/70 04/29/2024 3:16 PM MACHINE TENDER Pulse 91 11/02/2023 9:55 AM CDT Temperature 36.8 C (98.2 F) 11/02/2023 9:55 AM CDT Respiratory Rate 16 07/22/2018 7:54 AM CDT Oxygen Saturation 99% 08/07/2018 2:51 PM CDT Inhaled Oxygen Concentration - - Weight 68.6 kg (151 lb 3.2 oz) 04/29/2024 3:16 P M MACHINE TENDER Height 157.5 cm (5' 2 ) 06/04/2024 11:31 AM MACHINE TENDER Body Mass Index 26.78 11/02/2023 9:55 AM CDT Plan of Treatment Health Maintenance Due Date Last Done Comments Hepatitis C Screening 1980 DTaP/Tdap/Td Vaccine (1 - Tdap) 11/14/1991 Varicella Vaccines (1 of 2 - 13+ 2-dose series) 1993 Hepatitis B Screening 1998 Covid-19 Vaccine (3 - 2023- season) 2023 07/23/2020, 07/02/2020 Depression Screening 04/27/2024 04/27/2023, 01/13/2022, 11/30/2020, Additional history exists Influenza Vaccine (Season Ended) 2024 Cervical Cancer Screening 04/29/20252024, 04/27/2023, 01/13/2022, Additional history exists Regular Well Visit/Exam 18-64 04/29/2025 04/29/2024, 04/27/2023, 01/13/2022, Additional history exists Breast Cancer Screening-Mammogram 06/04/2025 06/04/2024, 06/13/2023, 05/03/2023, Additional history exists HPV Vaccines Aged Out No longer eligi ble based on patient's age to complete this topic Pneumococcal vaccine <65 Aged Out No longer eligible based on patient's age to complete this topic Procedures Procedure Name Priority Date/Time Associated Diagnosis Comments US BREAST LEFT LIMITED Schedule Routine, Read Routine (OP Routine) 06/04/2024 12:49 PM MACHINE TENDER Abnormal mammogram DIAGNOSTIC MAMMOGRAM BILATERAL W MOIRA Schedule Routine, Read Routine (OP Routine) 06/04/2024 11:36 AM MACHINE TENDER Abnormal mammogram PAP, REFLEX HPV Routine 04/29/2024 3:58 PM MACHINE TENDER Well woman exam from Last 3 Months Results * US Breast Limited left (06/04/2024 12:49 PM MACHINE TENDER) Anatomical Region Laterality Modality Breast Left Ultrasound 06/04/2024 1:09 PM MACHINE TENDER Impressions 06/04/2024 1:09 PM MACHINE TENDER The mammographic mass into sonographic lesions in the left breast will continue to be classified as probably benign. A follow-up left diagnostic mammogram and ultrasound are recommended in 6 months. BI-RADS: 3 - Probably benign The patient has been or will be contacted. The patient will be entered into a reminder system with a target due date of 6 months for her next examinations. Electronically signed by: Antonio Sexton M.D. Narrative 06/04/2024 1:09 PM MACHINE TENDER EXAMINATION: DIAGNOSTIC MAMMOGRAM BILATERAL W MOIRA, US BREAST LEFT LIMITED ORDERING HEALTHCARE PROVIDER: LUH SMITH HISTORY: Follow-up probably benign lesion in the left breast. COMPARISON: 06/13/2023, 05/03/2023 TECHNIQUE: CC and MLO routine views of the Bilateral breasts were obtained with digital technique using breast tomosynthesis with C view. Computer aided detection was utilized. This was followed by targeted left breast sonography. FINDINGS: The breasts are heterogeneously dense, which may obscure small masses. The previously seen oval mass in the left breast is again seen on the MLO view and now also seen posterior medially on the craniocaudal view. This appears to be occlusion o'clock position rather than the 12 o'clock position. There are no other suspicious masses, calcifications, or architectural distortion in either breast on the mammogram. Further evaluation was obtained with sonography. Targeted left breast ultrasound: The previously seen lesion at the 12 o'clock position of the left breast, 3 cm from the nipple measures 0.8 x 0.6 x 0.6 cm, previously 0.9 x 0.7 x 0.6 cm. This is likely a cluster of cysts. At the 10 o'clock position, 8 cm from the nipple, an oval hypoechoic lesion measures 0.7 x 0.4 cm. This is likely a complex cyst likely corresponds to the mammographic findings. These lesions continue to be classified as probably benign. us Luh Smith SENIOR EXECUTIVE ASSISTANT IMG MAMMO PROCEDURES Final Resul t * DIAGNOSTIC MAMMOGRAM BILATERAL W MOIRA (06/04/2024 11:36 AM MACHINE TENDER) Anatomical Region Laterality Modality Breast Bilateral Mammography 06/04/2024 1:09 PM MACHINE TENDER Impressions 06/04/2024 1:09 PM MACHINE TENDER The mammographic mass into sonographic lesions in the left breast will continue to be classified as probably benign. A follow-up left diagnostic mammogram and ultrasound are recommended in 6 months. BI-RADS: 3 - Probably benign The patient has been or will be contacted. The patient will be entered into a reminder system with a target due date of 6 months for her next examinations. Electronically signed by: Antonio Sexton M.D. Narrative 06/04/2024 1:09 PM MACHINE TENDER EXAMINATION: DIAGNOSTIC MAMMOGRAM BILATERAL W MOIRA, US BREAST LEFT LIMITED ORDERING HEALTHCARE PROVIDER: LUH SMITH HISTORY: Follow-up probably benign lesion in the left breast. COMPARISON: 06/13/2023, 05/03/2023 TECHNIQUE: CC and MLO routine views of the Bilateral breasts were obtained with digital technique using breast tomosynthesis with C view. Computer aided detection was utilized. This was followed by targeted left breast sonography. FINDINGS: The breasts are heterogeneously dense, which may obscure small masses. The previously seen oval mass in the left breast is again seen on the MLO view and now also seen posterior medially on the craniocaudal view. This appears to be occlusion o'clock position rather than the 12 o'clock position. There are no other suspicious masses, calcifications, or architectural distortion in either breast on the mammogram. Further evaluation was obtained with sonography. Targeted left breast ultrasound: The previously seen lesion at the 12 o'clock position of the left breast, 3 cm from the nipple measures 0.8 x 0.6 x 0.6 cm, previously 0.9 x 0.7 x 0.6 cm. This is likely a cluster of cysts. At the 10 o'clock position, 8 cm from the nipple, an oval hypoechoic lesion measures 0.7 x 0.4 cm. This is likely a complex cyst likely corresponds to the mammographic findings. These lesions continue to be classified as probably benign. us Luh Smith SENIOR EXECUTIVE ASSISTANT IMG MAMMO PROCEDURES Final Resul t * Pap, reflex HPV (04/29/2024 3:58 PM MACHINE TENDER) CLINICAL INFORMATION: [facility] Comment:None given LMP [facility] Comment:None given Previous Pap [facility] Comment:None given Prev. Bx [facility] Comment:None given SOURCE: [facility] Comment:Cervix, Endocervix Pap, specimen adequacy [facility] Comment: Satisfactory for evaluation. Endocervical/transformation zone component present. Age and/or menstrual status not provided HPV interp [facility] Comment: Cytology Results: Negative for intraepithelial lesion or malignancy. COMMENTS [facility] Comment: This Pap test has been evaluated with computer assisted technology. Dump Motorman [facility] st Neela Mace Comment: ABC, CT(ASCP) CT screening location: [place] [address] Administration [place] [id number] Comment [facility] Comment: EXPLANATORY NOTE: The Pap is a screening test for cervical cancer. It is not a diagnostic test and is subject to false negative and false positive results. It is most reliable when a satisfactory sample, regularly obtained, is submitted with relevant clinical findings and history, and when the Pap result is evaluated along with historic and current clinical information. Thin prep 04/29/2024 3:58 PM MACHINE TENDER 04/30/2024 3:51 AM MACHINE TENDER us Luh Smith SENIOR EXECUTIVE ASSISTANT LAB CYTOLOGY ORDERABLES Final Re sult [place] [address] Administration NIKHIL [place] [id number] from Last 3 Months Insurance [facility] [employer] [facility] [employer] Advance Directives For more information, please contact: [phone] * Full Code (Latest Code Status on File) Date Activated Date Inactivated Comments 07/20/2018 8:57 PM 07/22/2018 3:43 PM Care Teams Workcell Operator Relationship Specialty Start Date End Date Duke Sargent MD PCP - General Family Practice 04/28/23 Kimberly Rivera MD Consulting Physician Emergency Medicine 08/14/18
--- OUTSIDE RECORDS SUMMARY | 2024-07-10 09:03 | XMS_ITS | Clinical Summary ---
Author Organization [facility] Carlos Mercado Address [address] [place] [address] Care Team Providers Care Kier Hand Name Role Phone Duke Sargent MD Primary Care Provider [phone] [phone] Allergies Active Allergy Reactions Criticality Noted Date Comments Penicillin Itching Low 07/26/2021 Reaction: Itching, Medications liothyronine (CYTOMEL) 5 mcg Tablet Take 5 mcg by mouth daily. 11/09/2020 Active cholecalciferol, Vitamin D3, 125 mcg (5,000 unit) Capsule Take 5,000 Units by mouth daily. Active Active Problems Problem Noted Date Diagnosed Date Reactive thrombocytosis 07/26/2021 Hereditary spherocytosis 07/26/2021 Family History Medical History Relation Name Comments Diabetes Father Relation Name Status Comments Brother 1 Alive Brother 2 Alive Father Alive Mother Alive Sister Alive Son Alive Social History Tobacco Use Types Packs/Day Years Used Date Smoking Tobacco: Former Smokeless Tobacco: Never Alcohol Use Standard Drinks/Week Comments Yes 0 (1 standard drink = 0.6 oz pur e alcohol) Comments Unknown Sex and Gender Information Value Date Recorded Sex Assigned at Not on file Legal Sex Female 2:31 PM CDT Gender Identity Not on file Sexual Orientation Not on file Last Filed Vital Signs Vital Sign Reading Time Taken Comments Blood Pressure 122/81 07/26/2021 2:45 PM CDT Pulse 92 07/26/2021 2:45 PM CDT Temperature 37.2 C (98.9 F) 07/26/2021 2:45 PM CDT Respiratory Rate - - Oxygen Saturation 98% 07/26/2021 2:45 PM CDT Inhaled Oxygen Concentration - - Weight 68.5 kg (151 lb 1.6 oz) 07/26/2021 2:45 P M CDT Height 157.5 cm (5' 2 ) 07/26/2021 2:45 PM CDT Body Mass Index 27.64 07/26/2021 2:45 PM CDT Plan of Treatment Health Maintenance Due Date Last Done Comments DTAP/TDAP/TD VACCINES (1 - Tdap) 11/14/1999 HEPATITIS B VACCINES (1 of 3 - 19+ 3-dose series) 11/14/1999 HPV/Cotest (21-29) 2001 CERVICAL CANCER SCREENING 2010 HPV/Cotest (30-65) 2010 PAP SMEAR 2010 BREAST CANCER SCREENING 12/10/2021 12/10/2020 INFLUENZA VACCINE (#1) 2023 HPV VACCINES Aged Out No longer eligi ble based on patient's age to complete this topic Insurance [employer] Care Teams Kier Hand Relationship Specialty Start Date End Date Duke Sargent MD PCP - General Family Practice 07/26/21
--- OUTSIDE RECORDS SUMMARY | 2024-07-10 09:03 | XMS_ITS | Referral Summary ---
Author Organization [facility] Address [address] [place] [address] Care Team Providers Care Director Global Medical Affairs Name Role Phone Kimberly Rivera MD Unavailable [phone]- [phone] Duke Sargent MD Primary Care Provider [phone] [phone] Encounters Date Type Department Care Team Description 06/04/2024 Results Follow-Up [facility] [address] [place] [address] [address] [address] Lian Smith NP Abnormal mammogram (Primary Dx) 06/04/2024 11:23 AM ELECTRICIAN OUTSIDE - 06/04/2024 11:59 PM ELECTRICIAN OUTSIDE Hospital Encounter [address] [address] Abnormal mammogram Discharge Disposition: Discharge to home or self care 06/04/2024 11:23 AM ELECTRICIAN OUTSIDE - 06/04/2024 11:59 PM ELECTRICIAN OUTSIDE Hospital Encounter [address] [address] Abnormal mammogram Discharge Disposition: Discharge to home or self care 04/29/2024 3:30 PM ELECTRICIAN OUTSIDE Office Visit [facility] [address] [place] [address] [address] [address] Lian Smith NP Well woman exam (Primary Dx); Abnormal mammogram from Last 3 Months Allergies Active Allergy Reactions Criticality Noted Date [...] done. Assessment & Plan (04/29/2024 4:38 PM ELECTRICIAN OUTSIDE): Encouraged to schedule appointment to have follow-up diagnostic breast imaging done. Since she will be due for screening of the right breast in May, I have changed the order to a bilateral diagnostic mammogram w/ the left breast ultrasound. Endometrioma 01/26/2019 Overview (01/26/2019): S/p salpingo-oophorectomy, benign findings Endometriosis of vagina 01/26/2019 Pelvic mass 07/20/2018 Overview (07/21/2018): Added automatically from request for surgery [id number] Spherocytosis 03/09/2015 Overview (07/08/2016): Spherocytosis Social History Tobacco Use Types Packs/Day Years [...] on file Legal Sex Female 8:22 AM ELECTRICIAN OUTSIDE Gender Identity Not on file Sexual Orientation Not on file Last Filed Vital Signs Vital Sign Reading Time Taken Comments Blood Pressure 110/70 04/29/2024 3:16 PM ELECTRICIAN OUTSIDE Pulse 91 11/02/2023 9:55 AM CDT Temperature 36.8 C (98.2 F) 11/02/2023 9:55 AM CDT Respiratory Rate 16 07/22/2018 7:54 AM CDT Oxygen Saturation 99% 08/07/2018 2:51 PM CDT Inhaled Oxygen Concentration - - Weight 68.6 kg (151 lb 3.2 oz) 04/29/2024 3:16 P M ELECTRICIAN OUTSIDE Height 157.5 cm (5' 2 ) 06/04/2024 11:31 AM ELECTRICIAN OUTSIDE Body Mass Index 26.78 11/02/2023 9:55 AM CDT Plan of Treatment Not on file Procedures Procedure Name Priority Date/Time Associated Diagnosis Comments US BREAST LEFT LIMITED Schedule Routine, Read Routine (OP Routine) 06/04/2024 12:49 PM ELECTRICIAN OUTSIDE Abnormal mammogram DIAGNOSTIC MAMMOGRAM BILATERAL W MOIRA Schedule Routine, Read Routine (OP Routine) 06/04/2024 11:36 AM ELECTRICIAN OUTSIDE Abnormal mammogram PAP, REFLEX HPV Routine 04/29/2024 3:58 PM ELECTRICIAN OUTSIDE Well woman exam from Last 3 Months Results * US Breast Limited left (06/04/2024 12:49 PM ELECTRICIAN OUTSIDE) Anatomical Region Laterality Modality Breast Left Ultrasound 06/04/2024 1:09 PM ELECTRICIAN OUTSIDE Impressions 06/04/2024 1:09 PM ELECTRICIAN OUTSIDE The mammographic mass into sonographic lesions in [...] Antonio Sexton M.D. Narrative 06/04/2024 1:09 PM ELECTRICIAN OUTSIDE EXAMINATION: DIAGNOSTIC MAMMOGRAM BILATERAL W MOIRA, US BREAST LEFT LIMITED ORDERING HEALTHCARE PROVIDER: LIAN SMITH HISTORY: Follow-up probably benign lesion in [...] to be classified as probably benign. us Lian Smiht PUBLIC HEALTH REPRESENTATIVE IMG MAMMO PROCEDURES Final Resul t * DIAGNOSTIC MAMMOGRAM BILATERAL W MOIRA (06/04/2024 11:36 AM ELECTRICIAN OUTSIDE) Anatomical Region Laterality Modality Breast Bilateral Mammography 06/04/2024 1:09 PM ELECTRICIAN OUTSIDE Impressions 06/04/2024 1:09 PM ELECTRICIAN OUTSIDE The mammographic mass into sonographic lesions in [...] Antonio Sexton M.D. Narrative 06/04/2024 1:09 PM ELECTRICIAN OUTSIDE EXAMINATION: DIAGNOSTIC MAMMOGRAM BILATERAL W MOIRA, US BREAST LEFT LIMITED ORDERING HEALTHCARE PROVIDER: LIAN SMITH HISTORY: Follow-up probably benign lesion in [...] to be classified as probably benign. us Lian Smith PUBLIC HEALTH REPRESENTATIVE IMG MAMMO PROCEDURES Final Resul t * Pap, reflex HPV (04/29/2024 3:58 PM ELECTRICIAN OUTSIDE) CLINICAL INFORMATION: Paola Mace Comment:None given LMP Paola Mace Comment:None given Previous Pap Paola Mace Comment:None given Prev. Bx Paola Mace Comment:None given SOURCE: Paola Mace Comment:Cervix, Endocervix Pap, specimen adequacy Paola Mace Comment: Satisfactory for evaluation. Endocervical/transformation zone component present. Age and/or menstrual status not provided HPV interp Paola Mace Comment: Cytology Results: Negative for intraepithelial lesion or malignancy. COMMENTS Paola Mace Comment: This Pap test has been evaluated with computer assisted technology. Clerk Checker [facility] st Neela Mace Comment: ABC, CT(ASCP) CT screening location: [place] [address] Administration NIKHIL Marshall [address] Comment Paola Mace Comment: EXPLANATORY NOTE: The [...] clinical information. Thin prep 04/29/2024 3:58 PM ELECTRICIAN OUTSIDE 04/30/2024 3:51 AM ELECTRICIAN OUTSIDE Lian Smith PUBLIC HEALTH REPRESENTATIVE LAB CYTOLOGY ORDERABLES Final Re sult [facility] [address] [address] NIKHIL Bishop [phone] from Last 3 Months Insurance [facility] FEDERAL [facility] [employer]AL Advance Directives For more information, please contact: [phone] * Full Code (Latest Code Status on File) Date Activated Date Inactivated Comments 07/20/2018 8:57 PM 07/22/2018 3:43 PM Care Teams Director Global Medical Affairs Relationship Specialty Start Date End Date Duke Sargent MD PCP - General Family Practice 04/28/23 Kimberly Rivera MD Consulting Physician Emergency Medicine 08/14/18
[2024-07-10 19:44] LABS: Add Urine Microscopic? YES; Appearance Urine Turbid (Clear); Bacteria Urine 4+ /hpf; Bilirubin Urine Negative (Negative); Blood Urine Negative (Negative); Color Urine Yellow (Yellow); Glucose Urine UA Negative (Negative); Ketones Urine Negative (Negative); Leukocyte Esterase Ur Trace LEU/UL (Negative); Nitrate Urine Negative (Negative); Non Pathogenic Casts 0-2; Protein Urine Trace mg/dL (Negative); RBC Urine 0-2 /hpf (0-2); Specific Grav Ur 1.028 (1.001-1.035); Squamous Epithelial Cell Urine Few /hpf (Few)
== END 2024-07-10 08:36 | disposition home or self-care (01) ==
PROVIDERS: PCP Nurse Practitioner Adult Health; Visit Provider Nurse Practitioner Adult Health
DX: R39.9 Unspecified symptoms and signs involving the genitourinary system (principal)
CPT/HCPCS: 81001; 87077; 87086; 87186

== ENCOUNTER 2024-08-08 10:56 | Emergency (ER) | payer BC, SELFPAY ==
[2024-08-08 11:02] VITALS: BP 112/69; PULSE 76; RESP 16; TEMP 37.3; O2SAT 98
--- OUTSIDE RECORDS SUMMARY | 2024-08-08 11:09 | XMS_ITS | Referral Summary ---
Author Organization [facility] Address [address] [place] [address] Care Team Providers Care Control Systems Drafting Officer Name Role Phone Kimberly Rivera MD Unavailable [phone] Duke Sargent MD Primary Care Provider [phone] Encounters Date Type Department Care Team Description 06/04/2024 Results Follow-Up [facility] [address] [address] [place] [id number] Lian Smith NP Abnormal mammogram (Primary Dx) 06/04/2024 11:23 AM PRODUCTION GRIP - 06/04/2024 11:59 PM PRODUCTION GRIP Hospital Encounter [address] [address] Abnormal mammogram Discharge Disposition: Discharge to home or self care 06/04/2024 11:23 AM PRODUCTION GRIP - 06/04/2024 11:59 PM PRODUCTION GRIP Hospital Encounter [address] [address] Abnormal mammogram Discharge Disposition: Discharge to home or self care from Last 3 Months Allergies Active Allergy [...] done. Assessment & Plan (04/29/2024 4:38 PM PRODUCTION GRIP): Encouraged to schedule appointment to have follow-up diagnostic breast imaging done. Since she will be due for screening of the right breast in May, I have changed the order to a bilateral diagnostic mammogram w/ the left breast ultrasound. Endometrioma 01/26/2019 Overview (01/26/2019): S/p salpingo-oophorectomy, benign findings Endometriosis of vagina 01/26/2019 Pelvic mass 07/20/2018 Overview (07/21/2018): Added automatically from request for surgery [id number] Spherocytosis 03/09/2015 Overview (07/08/2016): Spherocytosis Social History [...] on file Legal Sex Female 8:22 AM PRODUCTION GRIP Gender Identity Not on file Sexual Orientation Not on file Last Filed Vital Signs Vital Sign Reading Time Taken Comments Blood Pressure 110/70 04/29/2024 3:16 PM PRODUCTION GRIP Pulse 91 11/02/2023 9:55 AM CDT Temperature 36.8 C (98.2 F) 11/02/2023 9:55 AM CDT Respiratory Rate 16 07/22/2018 7:54 AM CDT Oxygen Saturation 99% 08/07/2018 2:51 PM CDT Inhaled Oxygen Concentration - - Weight 68.6 kg (151 lb 3.2 oz) 04/29/2024 3:16 P M PRODUCTION GRIP Height 157.5 cm (5' 2 ) 06/04/2024 11:31 AM PRODUCTION GRIP Body Mass Index 26.78 11/02/2023 9:55 AM CDT Plan of Treatment Not on file Procedures Procedure Name Priority Date/Time Associated Diagnosis Comments US BREAST LEFT LIMITED Schedule Routine, Read Routine (OP Routine) 06/04/2024 12:49 PM PRODUCTION GRIP Abnormal mammogram DIAGNOSTIC MAMMOGRAM BILATERAL W MOIRA Schedule Routine, Read Routine (OP Routine) 06/04/2024 11:36 AM PRODUCTION GRIP Abnormal mammogram PAP, REFLEX HPV Routine 04/29/2024 3:58 PM PRODUCTION GRIP Well woman exam from Last 3 Months or Most Recently Relevant to Health Maintenance Results * US Breast Limited left (06/04/2024 12:49 PM PRODUCTION GRIP) Anatomical Region Laterality Modality Breast Left Ultrasound 06/04/2024 1:09 PM PRODUCTION GRIP Impressions 06/04/2024 1:09 PM PRODUCTION GRIP The mammographic mass into sonographic lesions in [...] Antonio Sexton M.D. Narrative 06/04/2024 1:09 PM PRODUCTION GRIP EXAMINATION: DIAGNOSTIC MAMMOGRAM BILATERAL W MOIRA, US [...] classified as probably benign. us Lian Smith SPA ASSISTANT MANAGER IMG MAMMO PROCEDURES Final Resul t * DIAGNOSTIC MAMMOGRAM BILATERAL W MOIRA (06/04/2024 11:36 AM PRODUCTION GRIP) Anatomical Region Laterality Modality Breast Bilateral Mammography 06/04/2024 1:09 PM PRODUCTION GRIP Impressions 06/04/2024 1:09 PM PRODUCTION GRIP The mammographic mass into sonographic lesions in [...] for her next examinations. Electronically signed by: Sol Garcia 06/04/2024 1:09 PM PRODUCTION GRIP EXAMINATION: DIAGNOSTIC MAMMOGRAM BILATERAL W MOIRA, US [...] classified as probably benign. us Lian Smith SPA ASSISTANT MANAGER IMG MAMMO PROCEDURES Final Resul t * Pap, reflex HPV (04/29/2024 3:58 PM PRODUCTION GRIP) CLINICAL INFORMATION: Poala Mace Comment:None given LMP Paola Mace Comment:None [...] has been evaluated with computer assisted technology. Folding Machine Setter Tee Almaraz Comment: ABC, CT(ASCP) CT screening location: [place] [address] Administration NIKHIL [place] [address] Comment Paola Mace Comment: EXPLANATORY NOTE: The [...] clinical information. Thin prep 04/29/2024 3:58 PM PRODUCTION GRIP 04/30/2024 3:51 AM PRODUCTION GRIP us Lian Smith NP LAB CYTOLOGY ORDERABLES Final Re sult [place] [address] Administration NIKHIL Bishop [phone] from Last 3 Months or Most Recently Relevant to Health Maintenance Insurance [facility] FEDERAL [facility] FED[employer]AL Advance Directives For more information, please contact: [phone] * Full Code (Latest Code Status on File) Date Activated Date Inactivated Comments 07/20/2018 8:57 PM 07/22/2018 3:43 PM Care Teams Control Systems Drafting Officer Relationship Specialty Start Date End Date Duke Sargent MD PCP - General Family Practice 04/28/23 Kimberly Rivera MD Consulting Physician Emergency Medicine 08/14/18
--- OUTSIDE RECORDS SUMMARY | 2024-08-08 11:09 | XMS_ITS | Clinical Summary ---
Author Organization [facility] Address [address] [place] [address] Care Team Providers Care Bio Medical Technician Name Role Phone Kimberly Rivera MD Unavailable [phone]- [phone] Duke Sargent MD Primary Care Provider [phone] [phone] Allergies Active Allergy Reactions Criticality Noted Date [...] done. Assessment & Plan (04/29/2024 4:38 PM MAINTENANCE TEAM LEADER): Encouraged to schedule appointment to have follow-up diagnostic breast imaging done. Since she will be due for screening of the right breast in May, I have changed the order to a bilateral diagnostic mammogram w/ the left breast ultrasound. Endometrioma 01/26/2019 Overview (01/26/2019): S/p salpingo-oophorectomy, benign findings Endometriosis of vagina 01/26/2019 Pelvic mass 07/20/2018 Overview (07/21/2018): Added automatically from request for surgery [id number] Spherocytosis 03/09/2015 Overview (07/08/2016): Spherocytosis Encounters Date Type Department Care Team Description 06/04/2024 11:23 AM MAINTENANCE TEAM LEADER - 06/04/2024 11:59 PM MAINTENANCE TEAM LEADER Hospital Encounter [facility] [address] [place] [address] Abnormal mammogram Discharge Disposition: Discharge to home or self care 06/04/2024 11:23 AM MAINTENANCE TEAM LEADER - 06/04/2024 11:59 PM MAINTENANCE TEAM LEADER Hospital Encounter [address] [address] Abnormal mammogram Discharge Disposition: Discharge to home or self care 06/04/2024 Results Follow-Up [facility] [address] [facility] [address] [place] [id number] Lian Smith NP Abnormal mammogram (Primary Dx) from Last 3 Months Surgical History Surgery [...] on file Legal Sex Female 8:22 AM MAINTENANCE TEAM LEADER Gender Identity Not on file Sexual Orientation Not on file Obstetrics History Para Term AB IAB SAB Ectopic Multiple Livin g Live Births 1 1 1 1 1 Date Outcome GA Total Labor Labor/2nd/3rd Weight Sex Type Anes PTL Jaye A1 A5 Name Clin Term Living Last Filed Vital Signs Vital Sign Reading Time Taken Comments Blood Pressure 110/70 04/29/2024 3:16 PM MAINTENANCE TEAM LEADER Pulse 91 11/02/2023 9:55 AM CDT Temperature 36.8 C (98.2 F) 11/02/2023 9:55 AM CDT Respiratory Rate 16 07/22/2018 7:54 AM CDT Oxygen Saturation 99% 08/07/2018 2:51 PM CDT Inhaled Oxygen Concentration - - Weight 68.6 kg (151 lb 3.2 oz) 04/29/2024 3:16 P M MAINTENANCE TEAM LEADER Height 157.5 cm (5' 2 ) 06/04/2024 11:31 AM MAINTENANCE TEAM LEADER Body Mass Index 26.78 11/02/2023 9:55 AM CDT Plan of Treatment Health Maintenance Due Date Last Done Comments Hepatitis C Screening 1980 DTaP/Tdap/Td Vaccine (1 - Tdap) 11/14/1991 Varicella Vaccines (1 of 2 - 13+ 2-dose series) 1993 Hepatitis B Screening 1998 Covid-19 Vaccine ( season) 2023 07/23/2020, 07/02/2020 Depression Screening 04/27/2024 [...] Read Routine (OP Routine) 06/04/2024 12:49 PM MAINTENANCE TEAM LEADER Abnormal mammogram DIAGNOSTIC MAMMOGRAM BILATERAL W MOIRA Schedule Routine, Read Routine (OP Routine) 06/04/2024 11:36 AM MAINTENANCE TEAM LEADER Abnormal mammogram PAP, REFLEX HPV Routine 04/29/2024 3:58 PM MAINTENANCE TEAM LEADER Well woman exam from Last 3 Months or Most Recently Relevant to Health Maintenance Results * US Breast Limited left (06/04/2024 12:49 PM MAINTENANCE TEAM LEADER) Anatomical Region Laterality Modality Breast Left Ultrasound 06/04/2024 1:09 PM MAINTENANCE TEAM LEADER Impressions 06/04/2024 1:09 PM MAINTENANCE TEAM LEADER The mammographic mass into sonographic lesions in [...] Antonio Sexton M.D. Narrative 06/04/2024 1:09 PM MAINTENANCE TEAM LEADER EXAMINATION: DIAGNOSTIC MAMMOGRAM BILATERAL W MOIRA, US [...] classified as probably benign. us Lian Smith CASING SEWER IMG MAMMO PROCEDURES Final Resul t * DIAGNOSTIC MAMMOGRAM BILATERAL W MOIRA (06/04/2024 11:36 AM MAINTENANCE TEAM LEADER) Anatomical Region Laterality Modality Breast Bilateral Mammography 06/04/2024 1:09 PM MAINTENANCE TEAM LEADER Impressions 06/04/2024 1:09 PM MAINTENANCE TEAM LEADER The mammographic mass into sonographic lesions in [...] Antonio Sexton M.D. Narrative 06/04/2024 1:09 PM MAINTENANCE TEAM LEADER EXAMINATION: DIAGNOSTIC MAMMOGRAM BILATERAL W MOIRA, US [...] classified as probably benign. us Lian Smith CASING SEWER IMG MAMMO PROCEDURES Final Resul t * Pap, reflex HPV (04/29/2024 3:58 PM MAINTENANCE TEAM LEADER) CLINICAL INFORMATION: Paola Mace Comment:None given LMP [...] has been evaluated with computer assisted technology. Product Tester [employer]lass Tee Almaraz Comment: ABC, CT(ASCP) CT screening location: [place] [address] Administration [place]KH[place] [address] Comment Paola Mace Comment: EXPLANATORY NOTE: The [...] clinical information. Thin prep 04/29/2024 3:58 PM MAINTENANCE TEAM LEADER 04/30/2024 3:51 AM MAINTENANCE TEAM LEADER us Lian Smith NP LAB CYTOLOGY ORDERABLES Final Re sult [place] [address] Administration NIKH[place] Bishop [phone] from Last 3 Months or Most Recently Relevant to Health Maintenance Insurance [facility] FEDERAL [facility] Address: [facility] [id number] [place] [address] [facility] FEDERAL [facility] Address: [facility] [id number] [place] [address] Advance Directives For more information, please contact: [phone] * Full Code (Latest Code Status on File) Date Activated Date Inactivated Comments 07/20/2018 8:57 PM 07/22/2018 3:43 PM Care Teams Bio Medical Technician Relationship Specialty Start Date End Date Duke Sargent MD PCP - General Family Practice 04/28/23 Kimberly Rivera MD Consulting Physician Emergency Medicine 08/14/18
--- OUTSIDE RECORDS SUMMARY | 2024-08-08 11:09 | XMS_ITS | Clinical Summary ---
Author Organization [facility] Address [address] [place] [address] Care Team Providers Care Fire Control Officer Name Role Phone Duke Sargent MD Primary Care Provider [phone] [phone] Allergies Active Allergy Reactions Criticality Noted Date [...] complete this topic Insurance [employer]AL Care Teams Fire Control Officer Relationship Specialty Start Date End Date Duke Sargent MD PCP - General Family Practice 07/26/21
--- NOTE | 2024-08-08 11:33 | ED_ITS ---
HPI - General Adult General Chief complaint: Upper Respiratory Infection Stated complaint: Sore Throat/Urinary Problem Time Seen by Provider: 08/08/24 11:20 Source: patient, RN notes reviewed and old records reviewed Mode of arrival: ambulatory Limitations: no limitations History of Present Illness HPI narrative: 43 year old female who presents to [facility] care with complaints of having burning with urination since yesterday and today she started with sore throat. Patient reports no fevers chills or sweats, patient reports that she has history of UTI's and did take Macrobid last month and doesn't think it cleared her infection, reports some mild left flank discomfort.. Patient reports that her throat feel scratchy and irritated,does have some post nasal drainage and feels some stuffiness. MD complaint: UTI some nasal congestion and sore throat Onset (ago): day(s) (day 2 of urinary burning today sore throat) Severity scale (1-10): 4 Quality: burning and other (soreness of throat) Related Data Allergies Allergy/AdvReac Type Severity Reaction Status Date / Time Penicillins Allergy Unknown achiness Verified 08/08/24 11:06 Review of Systems Review of Systems: CONSTITUTIONAL: Denies fever, chills, or sweats, reports scratchy throat and nasal congestion CARDIOVASCULAR: Denies chest pain, palpitations, or edema. RESPIRATORY: Denies cough or dyspnea. GASTROINTESTINAL: Denies abdominal pain, nausea, vomiting, or diarrhea. GENITOURINARY: Reports dysuria,no frequency, urgency. states left flank pain no visible hematuria. SKIN: Denies rash or itching. MUSCULOSKELETAL: Denies back pain or myalgia. Reports left CVA tenderness NEUROLOGIC: Denies headache All systems reviewed & are unremarkable except as noted in HPI and below PMFSH Past Medical History Medical History (Updated 08/10/24 @ 16:26 by April Bruno NP) Migraine Depression Anxiety UTI (urinary tract infection) Abnormal CBC Ovarian cyst Spherocytosis Surgical History Surgical History Delivery by section H/O splenectomy History of salpingectomy Hx of removal of ovary Family History Family History Father Diabetes mellitus Mother Hyperlipidemia Hypertension Grandparent Pneumonia Cerebrovascular accident Heart failure Social History Social History Smoking packs per day: 0.5 Smoking cigarettes per day: 10.0 Years smoked: 18 Smoking pack-years: 9.00 Smoking status: Former smoker Smoking end date: 04/15/20 Alcohol intake: current Drinks per week: 2 Alcohol use details: seltzer/tequila Substance use: never Lack of Transportation: No Lack of Food: Never True Current Housing: I Have Housing Concerned About Future Housing: No Difficulty Paying Gas/Electric Bills: No Difficulty Paying for Meds: No Currently Unemployed: No Education: High School Diploma/GED Difficulty w/ Childcare or Family Care: No Comments At time of signature, agree with nursing past medical, surgical, social and family history. There is no relevant family history pertinent to the presenting complaint Exam Narrative: GENERAL: Well-appearing, well-nourished, and in no acute distress. HEAD: Normocephalic, atraumatic. NECK: Supple.no lymphadenopathy, tonsils not enlarged some post nasal drainage noted CHEST: Clear to auscultation. No respiratory distress. HEART: Regular rate and rhythm. No murmur heard. Normal peripheral pulses. ABDOMEN: Soft, nontender, no suprapubic or any McBurney point tenderness,nondistended, normal active bowel sounds. Left CVA tenderness, urinary burning EXTREMITIES: Normal range of motion. No edema. SKIN: Warm, dry, no rash. NEURO: No focal deficits. Alert and oriented x3. Course Course Emergency Course: Patient is aware of diagnosis, understands and agrees to treatment plan.? Anticipatory guidance given.? Patient agrees to follow-up as directed and is aware of reasons to seek care at the emergency department. Portions of this record may have been created with voice recognition software Level of Care: Express Care Visit Vital Signs Vital signs: Vital Signs Temperature 37.3 C 08/08/24 11:02 Pulse Rate 76 08/08/24 11:02 Respiratory Rate 16 08/08/24 11:02 Blood Pressure 112/69 08/08/24 11:02 Pulse Oximetry 98 08/08/24 11:02 Oxygen Delivery Room Air 08/08/24 11:02 Temperature 37.3 C 08/08/24 11:02 Pulse Rate 76 08/08/24 11:02 Respiratory Rate 16 08/08/24 11:02 Blood Pressure 112/69 08/08/24 11:02 Pulse Oximetry 98 08/08/24 11:02 Oxygen Delivery Room Air 08/08/24 11:02 reviewed Medical Decision Making Differential Diagnosis Differential Diagnosis: UTI, nasal congestion and drainage, URI, pharyngitis Medical Records Medical records reviewed: Yes I reviewed the external patient's medical records. Vital Signs Vital Signs: Vital Signs Temperature 37.3 C 08/08/24 11:02 Pulse Rate 76 08/08/24 11:02 Respiratory Rate 16 08/08/24 11:02 Blood Pressure 112/69 08/08/24 11:02 Pulse Oximetry 98 08/08/24 11:02 Oxygen Delivery Room Air 08/08/24 11:02 Temperature 37.3 C 08/08/24 11:02 Pulse Rate 76 08/08/24 11:02 Respiratory Rate 16 08/08/24 11:02 Blood Pressure 112/69 08/08/24 11:02 Pulse Oximetry 98 08/08/24 11:02 Oxygen Delivery Room Air 08/08/24 11:02 reviewed Lab Data Lab results reviewed: Yes I reviewed the patient's lab results. Lab results narrative: urine dip glucose negative bilirubin negative, ketone negative, specific gravity 1.025, and blood negative pH 7.0, protein 1+ urobilinogen 0.2, nitrite positive, leukocyte trace Labs: Lab Results 08/08/24 Range/Units 11:14 POC Urine Color Yellow POC Urine Clarity Cloudy POC Urine pH 7.0 POC Ur Specif [place] 1.025 POC Urine Protein 1+ (Negative) POC Ur Glucose (UA) Negative (Negative) POC Urine Ketones Negative (Negative) POC Urine Blood Negative (Negative) POC Urine Nitrite Positive (Negative) POC Urine Bilirubin Negative (Negative) POC Urine Urobilinogen 0.2 POC U Leukocyte Esteras Trace (Negative) reviewed Critical Care Time Critical Care Time Critical Care Time: No Discharge Plan Discharge Clinical Impression: Nasal congestion UTI (urinary tract infection) Qualifiers: Urinary tract infection type: site unspecified Hematuria presence: without hematuria Qualified Code(s): N39.0 - Urinary tract infection, site not specified Patient Disposition: Home Condition: Stable Instructions: Antibiotic Form, Antihistamine/Decongestant (By mouth), Urinary Tract Infection in Women (DC) Additional Instructions: Increase fluids especially cranberry juice and water Avoid caffeine and carbonated beverages Antibiotic as directed Tylenol/ibuprofen for pain or fever Follow-up with her primary care provider if further problems or concerns Recheck if you have fever over 101, nausea and vomiting. Zyrtec Claritin or Sarah daily for sinus congestion If your symptoms persist, change or worsen significantly before you can contact your personal physician then please, without delay, go to the emergency department for further evaluation. Follow-up with PCP in 7-10 days or sooner if needed Patient Language: Bengali Prescriptions: New ciprofloxacin HCl 500 mg tablet 500 mg PO Q12H Qty: 14 0RF No Action Ubrelvy 100 mg tablet 100 mg PO ONCE Qty: 14 0RF Rx Instructions: as a single dose; may repeat once in >=2 hours after first dose if needed bupropion HCl [Wellbutrin XL] 150 mg tablet extended release 24 hr 150 mg PO QAM Qty: 90 0RF fluoxetine 40 mg capsule See Rx Instructions .ROUTE .COMPLEX Qty: 90 0RF Dose Instruction: TAKE 1 CAPSULE BY MOUTH DAILY Rx Instructions: TAKE 1 CAPSULE BY MOUTH DAILY Follow-up/Referrals: Pia Nicholas APRN [Primary Care Provider] - Time of Disposition: 11:45 Quality Pat Coma Scale Eyes: Open Verbal: Oriented and Alert Motor: Follows Commands Pat Coma Total Score: 15
[2024-08-08 12:15] LABS: EDUAAPPEAR Cloudy; EDUABILI Negative (Negative); EDUABLOOD Negative (Negative); EDUACOLOR1 Yellow; EDUAGLUCOSE Negative (Negative); EDUAKETONE Negative (Negative); EDUALEUKO Trace (Negative); EDUANITRATE Positive (Negative); EDUAPROTEIN 1+ (Negative); EDUASPGRAVITY 1.025; EDUAUROBILI 0.2
== END 2024-08-08 12:20 | disposition home or self-care (01) ==
PROVIDERS: Emergency Provider Registered Nurse; PCP Nurse Practitioner Adult Health
DX: R09.81 Nasal congestion (principal); N39.0 Urinary tract infection, site not specified; Z87.891 Personal history of nicotine dependence; F41.9 Anxiety disorder, unspecified; F32.A Depression, unspecified
CPT/HCPCS: 81003; 87086; 87186; 99213; G0463

== ENCOUNTER 2025-02-13 09:13 | Outpatient (CLI) | payer BC, SELFPAY ==
--- OUTSIDE RECORDS SUMMARY | 2025-02-13 09:38 | XMS_ITS | Clinical Summary ---
Author Organization [facility] Carlos Mercado Address [address] [address] Care Team Providers Care Embroidery Assistant Name Role Phone Dkue Sargent MD Primary Care Provider [phone] Allergies Active Allergy Reactions Criticality Noted Date [...] P M CDT Height 157.5 cm (5' 2) 07/26/2021 2:45 PM CDT Body Mass Index 27.64 07/26/2021 2:45 PM CDT Plan of Treatment Health Maintenance Due Date Last Done Comments DTAP/TDAP/TD VACCINES (1 - Tdap) 11/14/1999 HEPATITIS B VACCINES (1 of 3 - 19+ 3-dose series) 11/01 HPV/Cotest (21-29) 2001 HPV VACCINES (1 - 3-dose SCDM series) 11/14/2007 CERVICAL CANCER SCREENING 2010 HPV/Cotest (30-65) 2010 PAP SMEAR 2010 BREAST CANCER SCREENING 12/10/2021 12/10/2020 INFLUENZA VACCINE (#1) 2024 Insurance FEDERAL Care Teams Embroidery Assistant Relationship Specialty Start Date End Date Duke Sargent MD PCP - General Family Practice 07/26/21
--- OUTSIDE RECORDS SUMMARY | 2025-02-13 09:38 | XMS_ITS | Clinical Summary ---
Author Organization [facility] Address [address] [place] [address] Care Team Providers Care Sequins Stringer Name Role Phone Kimberly Rivera MD Unavailable [phone] Duke Sargent MD Primary Care Provider [phone] Allergies Active Allergy Reactions Criticality Noted Date [...] done. Assessment & Plan (04/29/2024 4:38 PM OPERATIONS TEAM LEADER): Encouraged to schedule appointment to [...] (07/21/2018): Added automatically from request for surgery [id number] Spherocytosis 03/09/2015 Overview (07/08/2016): Spherocytosis Encounters Date Type Department Care Team Description 12/06/2024 Orders Only [place] [facility] [address] [place] [address] Luh Smith NP Encounter for screening mammogram for malignant neoplasm of breast (Primary Dx) 12/05/2024 Results Follow-Up [place] [facility] [address] [place] [address] Luh Smith NP Diagnostic Mammogram Left W Lauri 12/04/2024 2:18 PM CDT - 12/04/2024 11:59 PM CDT Hospital Encounter [address] [address] Abnormal mammogram Discharge Disposition: Discharge to home or self care 12/04/2024 2:17 PM CDT - 12/04/2024 11:59 PM CDT Hospital Encounter [address] [address] Abnormal mammogram Discharge Disposition: Discharge to home or self care from Last 3 Months Surgical History Surgery [...] on file Legal Sex Female 8:22 AM OPERATIONS TEAM LEADER Gender Identity Not on file [...] Comments Blood Pressure 110/70 04/29/2024 3:16 PM OPERATIONS TEAM LEADER Pulse 91 11/02/2023 9:55 AM CDT Temperature 36.8 C (98.2 F) 11/02/2023 9:55 AM CDT Respiratory Rate 16 07/22/2018 7:54 AM CDT Oxygen Saturation 99% 08/07/2018 2:51 PM CDT Inhaled Oxygen Concentration - - Weight 72.6 kg (160 lb) 12/04/2024 2:24 PM CDT Height 160 cm (5' 3) 12/04/2024 2:24 PM CDT Body Mass Index 28.34 12/04/2024 2:24 PM CDT Plan of Treatment Health Maintenance Due Date Last Done Comments Hepatitis C Screening 1980 Meningococcal B Vaccine (1 o f 4 - Increased Risk) 1990 DTaP/Tdap/Td Vaccine (1 - Tdap) 11/14/1991 Varicella Vaccines (1 of 2 - 13+ 2-dose series) 1993 Hepatitis B Screening 1998 Pneumococcal vaccine <65 (1 of 2 - PCV) 11/14/1999 HPV Vaccines (1 - 3-dose SCD M series) 11/14/2007 Depression Screening 04/27/2024 04/27/2023, 01/13/2022, 11/30/2020, Additional history exists Covid-19 Vaccine (3 - 2024-2 6 season) 2024 07/23/2020, 07/02/2020 Influenza Vaccine (#1) 2024 Cervical Cancer Screening 04/29/20252024, 04/27/2023, 01/13/2022, Additional history exists Regular Well Visit/Exam 18-64 04/29/2025, 04/27/2023, 01/13/2022, Additional history exists Breast Cancer Screening-Mammogram 06/04/2025 06/04/2024, 06/13/2023, 05/03/2023, Additional history exists Procedures Procedure Name Priority Date/Time Associated Diagnosis Comments US BREAST LEFT LIMITED Schedule Routine, Read Routine (OP Routine) 12/04/2024 2:49 PM CDT Abnormal mammogram DIAGNOSTIC MAMMOGRAM LEFT W LAURI Schedule Routine, Read Routine (OP Routine) 12/04/2024 2:31 PM CDT Abnormal mammogram DIAGNOSTIC MAMMOGRAM BILATERAL W LAURI Schedule Routine, Read Routine (OP Routine) 06/04/2024 11:36 AM OPERATIONS TEAM LEADER Abnormal mammogram PAP, REFLEX HPV Routine 04/29/2024 3:58 PM OPERATIONS TEAM LEADER Well woman exam from Last 3 Months or Most Recently Relevant to Health Maintenance Results * US Breast Limited left (12/04/2024 2:49 PM CDT) Anatomical Region Laterality Modality Breast Left Ultrasound 12/04/2024 3:59 PM CDT Impressions 12/04/2024 3:59 PM CDT All structures seen are thought to be benign. The patient may return to screening mammography as per ACR guidelines. She is due for bilateral screening in April of next year. OVERALL FINAL ASSESSMENT: [id number] Electronically signed by: Adrienne Wei M.D. Narrative 12/04/2024 3:59 PM CDT EXAMINATION: LEFT DIGITAL DIAGNOSTIC MAMMOGRAM AND DIGITAL BREAST TOMOSYNTHESIS; LEFT BREAST SONOGRAM HISTORY: Follow-up COMPARISON: Studies dating back to 05/03/2023 TECHNIQUE: Full field digital mammographic views of the left breast(s) were performed, including computer aided detection (CAD) and digital breast tomosynthesis (DBT). Directed ultrasound evaluation of the left breast(s) was performed. BREAST PARENCHYMAL COMPOSITION: The breasts are heterogeneously dense, which may obscure small masses. MAMMOGRAM FINDINGS: The mass in question is again noted, unchanged. It contains a fatty cleft. This is consistent with a lymph node. There are no suspicious masses. No suspicious calcifications are seen. There is no unexplained architectural distortion. There is no skin thickening seen. There are no mammographically abnormal lymph nodes seen in the axillae or elsewhere. ULTRASOUND FINDINGS: Sonography through the 10 o'clock position demonstrates the previously seen circumscribed, hypoechoic mass with a linear echogenicity thought to represent the hilum of a lymph node. It is unchanged and is considered benign. There is a septated cyst against the chest wall at 12:00 with a maximum dimension of 10 mm. This is benign in appearance. An additional septated cyst is seen at 12:00 with a maximum dimension of 8 mm. us Luh Smith NP IMG MAMMO PROCEDURES Final Resul t * Diagnostic Mammogram Left W Lauri (12/04/2024 2:31 PM CDT) Anatomical Region Laterality Modality Breast Left Mammography 12/04/2024 3:59 PM CDT Impressions 12/04/2024 3:59 PM CDT All structures seen are thought to be benign. The patient may return to screening mammography as per ACR guidelines. She is due for bilateral screening in April of next year. OVERALL FINAL ASSESSMENT: [id number] Electronically signed by: Adrienne Wei M.D. Narrative 12/04/2024 3:59 PM CDT EXAMINATION: LEFT DIGITAL DIAGNOSTIC MAMMOGRAM AND DIGITAL BREAST TOMOSYNTHESIS; LEFT BREAST SONOGRAM HISTORY: Follow-up COMPARISON: Studies dating back to 05/03/2023 TECHNIQUE: Full field digital mammographic views of the left breast(s) were performed, including computer aided detection (CAD) and digital breast tomosynthesis (DBT). Directed ultrasound evaluation of the left breast(s) was performed. BREAST PARENCHYMAL COMPOSITION: The breasts are heterogeneously dense, which may obscure small masses. MAMMOGRAM FINDINGS: The mass in question is again noted, unchanged. It contains a fatty cleft. This is consistent with a lymph node. There are no suspicious masses. No suspicious calcifications are seen. There is no unexplained architectural distortion. There is no skin thickening seen. There are no mammographically abnormal lymph nodes seen in the axillae or elsewhere. ULTRASOUND FINDINGS: Sonography through the 10 o'clock position demonstrates the previously seen circumscribed, hypoechoic mass with a linear echogenicity thought to represent the hilum of a lymph node. It is unchanged and is considered benign. There is a septated cyst against the chest wall at 12:00 with a maximum dimension of 10 mm. This is benign in appearance. An additional septated cyst is seen at 12:00 with a maximum dimension of 8 mm. Luh Smith NP IMG MAMMO PROCEDURES Final Resul t * DIAGNOSTIC MAMMOGRAM BILATERAL W LAURI (06/04/2024 11:36 AM OPERATIONS TEAM LEADER) Anatomical Region Laterality Modality Breast Bilateral Mammography 06/04/2024 1:09 PM OPERATIONS TEAM LEADER Impressions 06/04/2024 1:09 PM OPERATIONS TEAM LEADER The mammographic mass into sonographic [...] Antonio Sexton M.D. Narrative 06/04/2024 1:09 PM OPERATIONS TEAM LEADER EXAMINATION: DIAGNOSTIC MAMMOGRAM BILATERAL W LAURI, US BREAST LEFT LIMITED ORDERING HEALTHCARE PROVIDER: [...] continue to be classified as probably benign. Luh Smith RADIATION ONCOLOGY THERAPIST IMG MAMMO PROCEDURES Final Resul t * Pap, reflex HPV (04/29/2024 3:58 PM OPERATIONS TEAM LEADER) CLINICAL INFORMATION: Paola Mace Comment:None [...] has been evaluated with computer assisted technology. Operations Officer Trust Department Tee Almaraz Comment: ABC, CT(ASCP) CT screening location: [place] [address] [address] [place] [address] Comment Paola Mace Comment: EXPLANATORY NOTE: The [...] clinical information. Thin prep 04/29/2024 3:58 PM OPERATIONS TEAM LEADER 04/30/2024 3:51 AM OPERATIONS TEAM LEADER us Luh Smith RADIATION ONCOLOGY THERAPIST LAB CYTOLOGY ORDERABLES Final Re sult [place] [address] [address] [place] [phone] from Last 3 Months or Most Recently Relevant to Health Maintenance Insurance [facility] FEDERAL Member Subscriber Plan / Payer (Ef fective 2016-Present) Name:Ester Hernandez Relation to Subscriber:Spouse Name:ISAAC HERNANDEZ Date of :1980 (Home) Address: [address] [place] [id number] Payer ID:[id number] (NAIC) Group ID:[id number] Type:[facility] Address: [facility] [id number] [place] [id number] [place] [address] [facility] [employer] Advance Directives For more information, please contact: [phone] * Full Code (Latest Code Status on File) Date Activated Date Inactivated Comments 07/20/2018 8:57 PM 07/22/2018 3:43 PM Care Teams Sequins Stringer Relationship Specialty Start Date End Date Duke Sargent MD PCP - General Family Practice 04/28/23 Kimberly Rivera MD Consulting Physician Emergency Medicine 08/14/18
[2025-02-13 19:03] LABS: Hematocrit 46.2 % (37.0-47.0); Hemoglobin 15.1 g/dL (12.0-15.0); Mean Corpuscular HGB Conc 32.7 g/dl (32-36); Mean Corpuscular Hemoglobin 30.4 pg (26-34); Mean Corpuscular Volume 93.1 fl (80-100); Platelet Count Result 619 k/mm3 (150-375); Red Blood Count 4.96 M/mm3 (4.2-5.4); White Blood Count 12.9 K/mm3 (4.5-10.0)
[2025-02-13 19:13] LABS: Add Urine Microscopic? YES; Appearance Urine Turbid (Clear); Glucose Urine UA Negative (Negative); Leukocyte Esterase Ur 1+ LEU/UL (Negative); Need Manual Microscopic Reviewed; Nitrate Urine Negative (Negative); Specific Grav Ur 1.033 (1.001-1.035)
[2025-02-13 19:19] LABS: Alanine Aminotransferase 87 U/L (6-35); Albumin Level 4.1 g/dL (3.5-5.1); Alkaline Phosphatase 63 U/L (38-126); Anion Gap 4 mmol/L (4-12); Aspartate Amino Transferase 134 U/L (14-36); Bilirubin,Total 0.8 mg/dL (0.2-1.3); Blood Urea Nitrogen 13 mg/dL (7-17); Calcium 8.9 mg/dL (8.4-10.2); Carbon Dioxide 27 mmol/L (22-30); Chloride 106 mmol/L (98-107); Cholesterol 281 mg/dL (0-200); Estimated Glomerular Filt Rate > 60; Glucose 90 mg/dL (65-110); HDL Direct 55 mg/dL; Potassium 4.3 mmol/L (3.4-5.0); Sodium 137 mmol/L (137-145); Total Protein 7.2 g/dL (6.3-8.2); Triglycerides 108 mg/dL (<150)
[2025-02-13 19:40] LABS: Free T4 Free Thyroxine 1.00 ng/dL (0.78-2.19)
[2025-02-13 19:54] LABS: Thyroid Stimulating Hormone 2.210 uIU/mL (0.465-4.680)
[2025-02-13 21:27] LABS: Hemoglobin A1C 4.9 % (<5.7)
== END 2025-02-13 09:14 | disposition home or self-care (01) ==
PROVIDERS: PCP Nurse Practitioner Adult Health; Visit Provider Nurse Practitioner Adult Health
DX: R73.9 Hyperglycemia, unspecified (principal); E78.5 Hyperlipidemia, unspecified; R39.9 Unspecified symptoms and signs involving the genitourinary system; E07.9 Disorder of thyroid, unspecified; F41.9 Anxiety disorder, unspecified
CPT/HCPCS: 36415; 80053; 80061; 81001; 82306; 83036; 84439; 84443; 85027; 87086

== ENCOUNTER 2025-03-13 11:09 | Outpatient (CLI) | payer BC, SELFPAY ==
[2025-03-13 18:57] LABS: Add Urine Microscopic? YES; Appearance Urine Cloudy (Clear); Glucose Urine UA Negative (Negative); Leukocyte Esterase Ur 2+ LEU/UL (Negative); Need Manual Microscopic Reviewed; Nitrate Urine Negative (Negative); Specific Grav Ur 1.020 (1.001-1.035)
[2025-03-13 19:00] LABS: Alanine Aminotransferase 90 U/L (6-35); Albumin Level 4.3 g/dL (3.5-5.1); Alkaline Phosphatase 67 U/L (38-126); Aspartate Amino Transferase 122 U/L (14-36); Bilirubin,Total 0.8 mg/dL (0.2-1.3); Total Protein 7.8 g/dL (6.3-8.2)
[2025-03-13 19:07] LABS: Hematocrit 48.1 % (37.0-47.0); Hemoglobin 15.2 g/dL (12.0-15.0); Immature Granulocyte Percent A 0.4 % (0-0.5); Lymphocytes Absolute Auto 5.08 K/mm3 (0.9-3.2); Mean Corpuscular HGB Conc 31.6 g/dl (32-36); Mean Corpuscular Hemoglobin 30.7 pg (26-34); Mean Corpuscular Volume 97.2 fl (80-100); Nucleated Red Blood Cells Absolute Auto 0.000 K/mm3 (0.0-0.012); Nucleated Red Blood Cells Perc 0.0 % (0.0-0.2); Platelet Count Result 625 k/mm3 (150-375); Red Blood Count 4.95 M/mm3 (4.2-5.4); White Blood Count 16.0 K/mm3 (4.5-10.0)
== END 2025-03-13 11:10 | disposition home or self-care (01) ==
PROVIDERS: PCP Nurse Practitioner Adult Health; Visit Provider Nurse Practitioner Adult Health
DX: R79.89 Other specified abnormal findings of blood chemistry (principal); R74.01 Elevation of levels of liver transaminase levels; N39.0 Urinary tract infection, site not specified
CPT/HCPCS: 36415; 80076; 81001; 85025